=== PATIENT | male | born 1945 | race Caucasian/White ===

== ENCOUNTER 2019-09-17 10:15 | Emergency (ER) | payer MEDICARE, SELFPAY ==
--- NOTE | ~2019-09-17 | XR_ITS ---
EXAMINATION: XR chest 1V portable INDICATION: Altered mental status TECHNIQUE: Portable AP chest at 1108 hours COMPARISON: 11/28/2017 FINDINGS: There is mild atelectasis of the lung bases. No pleural effusion or pneumothorax is identif ied. The cardiomediastinal silhouette is normal. 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 IMPRESSION: 1. Mild atelectasis of the lung bases. Reviewed, dictated and finalized at location A.
--- NOTE | ~2019-09-17 | CT_ITS ---
EXAMINATION: CT brain wo con DATE: 09/17/2019 10:59 INDICATION: Altered mental status TECHNIQUE: Computed tomography (CT) of the head was performed without intravenous contrast. Sagittal and coronal reconstructions were performed. The mA was adjusted according to patient size. Iterative reconstruction technique was employed. The dose-length product was 605.33 mGy-cm. COMPARISON: head CT dated 11/28/2017 FINDINGS: No acute intracranial hemorrhage, acute infarction or abnormal extra axial fluid collection. There is mild scattered white matter hypoattenuation consistent with chronic small vessel ischemic disease. S ymmetric prominence of the sulci consistent with mild age-appropriate diffuse cerebral volume loss. V entricles are normal and symmetric. No mass/mass effect. The orbits, paranasal sinuses and mastoid ai r cells are normal. IMPRESSION: 1. No acute intracranial process. 2. Age-related changes including mild diffuse volume loss and mild scattered white matter hypoattenua tion consistent with chronic small vessel ischemic disease. Reviewed, dictated and finalized at location A. IMPRESSION: 1. No acute intracranial process. 2. Age-related changes including mild diffuse volume loss and mild scattered wh ite matter hypoattenuation consistent with chronic small vessel ischemic diseas e.
--- NOTE | 2019-09-17 10:32 | ECG_ITS ---
Measurements Intervals [place] Rate: 62 P: 19 IN: 190 QRS: 54 QRSD: 109 T: 25 QT: 416 QTc: 424 Interpretive Statements SINUS RHYTHM BASELINE WANDER- V3 NORMAL ECG Electronically Signed On 09-17-2019 11:25:30 CDT by Sonny Palacio D.O.
[2019-09-17 10:50] VITALS: BP 134/76; PULSE 62; RESP 17; TEMP 36.8; O2SAT 96
[2019-09-17 11:23] LABS: Basophils Absolute Auto 0.02 K/mm3 (0.00-0.10); Basophils Percent Auto 0.3 % (0.0-1.0); Eosinophils Absolute Auto 0.04 K/mm3 (0.02-0.50); Eosinophils Percent Auto 0.6 % (1.0-6.0); Hematocrit 41.4 % (37.0-46.0); Hemoglobin 14.3 g/dL (12.4-15.3); Immature Granulocyte Absolute 0.02 K/mm3 (0.00-0.00); Immature Granulocyte Percent A 0.3 % (0.0-0.0); Lymphocytes Absolute Auto 0.94 K/mm3 (1.10-4.50); Lymphocytes Percent Auto 13.6 % (18.0-42.0); Mean Corpuscular HGB Conc 34.5 g/dL (32.0-36.0); Mean Corpuscular Hemoglobin 31.8 pg (27.0-31.0); Mean Platelet Volume 9.8 fl (8.7-11.0); Monocytes Absolute Auto 0.61 K/mm3 (0.10-0.90); Monocytes Percent Auto 8.8 % (2.0-11.0); Neutrophils Absolute Auto 5.3 K/mm3 (1.7-7.2); Neutrophils Percent Auto 76.4 % (50.0-70.0); Platelet Count Result 159 K/mm3 (150-420); White Blood Count 6.9 K/mm3 (4.8-10.8)
[2019-09-17 11:36] LABS: Add Urine Microscopic? YES; Appearance Urine Clear (Clear); Bilirubin Urine Negative (Negative); Blood Urine Negative (Negative); Color Urine Yellow (Yellow); Glucose Urine UA Negative (Negative); Ketones Urine Trace (Negative); Leukocyte Esterase Ur Negative LEU/UL (Negative); Nitrate Urine Negative (Negative); Protein Urine Negative (Negative); Specific Grav Ur 1.025 (1.010-1.020); pH Urine 6.5 (5.0-8.0)
[2019-09-17 11:44] LABS: Bacteria Urine 2+ /hpf; Mucus Urine Few /lpf; RBC Urine 0-2 /hpf (0-2); Squamous Epithelial Cell Urine Few /hpf (Few); WBC Urine 0-3 /hpf (0-3)
[2019-09-17 11:44] LABS: Lactic Acid Reflex 1.5 mmol/L (0.4-2.0)
[2019-09-17 11:57] LABS: Alanine Aminotransferase 9 U/L (16-63); Albumin Level 3.9 g/dL (3.4-5.0); Alkaline Phosphatase 93 U/L (46-116); Aspartate Amino Transferase 23 U/L (15-37); Bilirubin,Total 1.5 mg/dL (0.00-1.00); Blood Urea Nitrogen 26 mg/dL (7-18); Calcium 8.5 mg/dL (8.5-10.1); Carbon Dioxide 32 mmol/L (21-32); Chloride 103 mmol/L (98-108); Creatine Kinase 219 U/L (39-308); Estimated Glomerular Filt Rate > 60; Glucose 94 mg/dL (70-99); Osmolality Calculated 296 mOsm/kg (285-295); Sodium 141 mmol/L (136-145); Thyroid Stimulating Hormone 1.88 uIU/mL (0.36-3.74); Total Protein 7.4 g/dL (6.4-8.2)
[2019-09-17 11:58] LABS: Acetaminophen 0 ug/mL (10-30); Ethanol < 3 mg/dL (0-6); Salicylate < 0.3 mg/dL (2.8-20.0); Troponin I < 0.02 ng/mL (0.00-0.056)
[2019-09-17 12:03] VITALS: BP 167/94; PULSE 62; O2SAT 96
--- NOTE | 2019-09-17 12:04 | ED.WEAKNESS ---
HPI - Weakness General Chief complaint: Weakness Stated complaint: altered mental status Source: patient and family Mode of arrival: wheelchair Limitations: no limitations History of Present Illness HPI Narrative: This is a 73-year-old male that presents with altered mental status with increased weakness and lower extremity weakness with some numerous falls, the patient denies any nausea vomiting, no chest pain no abdominal pain no shortness of breath no diarrhea constipation. The patient's called her primary care physician and told them about his frequent falls and increased weakness and advised to present to the emergency department for further evaluation. The patient has a history of Parkinson's disease, depression is being seen by a neurologist and the falls correspond with the starting of Seroquel approximately 4 months ago. Complaint: generalized weakness Onset (ago): month(s) Duration: constant Location: generalized Migration: none Severity: moderate Relieving factors: none Exacerbating factors: none Context: new medication Associated symptoms: denies other symptoms Related Data Home Medications Medication Instructions Recorded Confirmed carbidopa 25 mg-levodopa 100 mg 1 tablet PO TID 06/17/19 09/17/19 tablet carbidopa ER 50 mg-levodopa 200 mg 1 tablet PO .Bedtime tablet 06/17/19 09/17/19 tablet,extended release cholecalciferol (vitamin D3) 25 1,000 unit PO DAILY 06/17/19 09/17/19 mcg (1,000 unit) tablet melatonin 5 mg capsule 5 mg PO .Bedtime PRN cap 06/17/19 09/17/19 quetiapine 25 mg tablet 50 mg PO DAILY tablet 06/17/19 09/17/19 sertraline 50 mg tablet 50 mg PO DAILY 06/17/19 09/17/19 Allergies Allergy/AdvReac Type Severity Reaction Status Date / Time No Known Allergies Allergy Verified 06/17/19 14:15 Review of Systems Review of Systems: All systems reviewed & are unremarkable except as noted in HPI and below PMFSH Past Medical History Medical History Depression Insomnia Parkinsons disease Dx'd 2010 Surgical History Surgical History No history of previous surgery Social History Social History Smoking status: Never smoker Additional living arrangements comments: . 3 Children. Additional occupation/education comments: [employer] Gender identity (if verbalized by the patient): Male Exam Const: General: no acute distress and alert Orientation/consciousness: confusion Limitations: altered mental status HENMT: Head: normal to inspection Eyes: Conjunctivae: conjunctivae normal Pupils: Equal, round and reactive pupils present Neck: Neck: normal visual inspection and no lymphadenopathy Chest: Chest palpation & inspection: normal inspection of the chest and abnormal inspection of the chest Resp: Effort & Inspection: normal respiratory effort Cardio: Rate: regular rate Rhythm: regular rhythm GI: GI Palp: Yes Soft to palpation : Testes: Testes normal Back/Spine/Pelvis: Back: no CVA tenderness Skin: General skin exam: normal color Rashes: no rashes Extrem: General: normal to inspection Course Vital Signs Vital signs: Vital Signs Temperature 36.8 C 09/17/19 10:50 Pulse Rate 62 09/17/19 10:50 Respiratory Rate 17 09/17/19 10:50 Blood Pressure 134/76 09/17/19 10:50 Pulse Oximetry 96 09/17/19 10:50 Temperature 36.8 C 09/17/19 10:50 Pulse Rate 62 09/17/19 12:03 Respiratory Rate 17 09/17/19 10:50 Blood Pressure 167/94 H 09/17/19 12:03 Pulse Oximetry 96 09/17/19 12:03 MDM - Weakness Lab Data Result diagrams: 09/17/19 11:18 09/17/19 11:18 Labs: Lab Results 09/17/19 09/17/19 09/17/19 Range/Units 11:18 11:18 11:18 WBC 6.9 (4.8-10.8) K/mm3 RBC 4.50 L (4.70-6.10) M/mm3 Hgb 14.3 (12.4-15.3)
--- NOTE | 2019-09-17 12:05 | PC.NURSE ---
ERP SPOKE WITH PATIENT AND ABOUT ADMISSION FOR THERAPY. PATIENT DECLINES, STATES THEY CAN DO ALL THERAPY OUTPATIENT THROUGH THEIR OWN PHYSICIAN. PLAN IS TO DISCHARGE AND FOLLOW UP WITH PMD.
[2019-09-17 12:24] VITALS: RESP 15
== END 2019-09-17 12:25 | disposition home or self-care (01) ==
PROVIDERS: Emergency Provider Emergency Medicine; PCP Family Medicine
DX: G20 Parkinson's disease (principal); R53.1 Weakness; W19.XXXA Unspecified fall, initial encounter; Z79.899 Other long term (current) drug therapy
CPT/HCPCS: 36415; 70450; 71045; 80053; 80307; 81001; 82550; 83605; 84443; 84484; 85025; 87040; 93005; 99283; 99284

== ENCOUNTER 2019-10-02 10:04 | Outpatient (RCR) | payer MEDICARE, SELFPAY ==
--- NOTE | 2019-10-02 13:24 | PTOPEVAL ---
Thank you for referring Toney Rock to [facility]. Please review, sign, date and return this plan of care SACHIN. I agree with and certify that the following plan of care is medically necessary. Referring Physician Date Admitting Provider: Attending Provider: Ranjan Alfonso MD Referring Provider: *PT Outpatient Evaluation Start: 10/02/19 10:17 Freq: Status: Active Protocol: Document 10/02/19 10:18 [facility] (Rec: 10/02/19 11:15 [facility] [id number]) Therapy Assessment Status Assessment Status Assessment Status Evaluation Outpatient Past Medical History Past Medical History Source of Past Medical History Patient,Family/Significant Other Neurological History Hx Parkinson's Disease Yes Psychosocial History Hx Depression Yes Evaluation Information Problem Diagnosis unsteady gait, parkinsons Subjective Information patient is reporting history Query Text:As Reported By Patient/ with and through his . Family they report patient has been diagnosed with parkinsons since 2010. they report in the last 2-3 weeks, patient has been falling more frequently. patients report he has been weak in the knees nad unable to stand without help for a few days. he reports he has been having an increased hard time going to sleep. they report he has been taking carbidopa/levodopa 3x daily and an extended release dose at night. he does not have a brain stimulator. Prior Level of Function Comments Additional Prior Level of Function patient has been diagnosed Comments with parkinsons since 2010. he reports prior to his recent increased bouts of falls in the past few weeks to a month, patient was falling about 1x per month. he reports he has fallen most recently in the last few days. Pain Assessment Timing of Pain Assessment Timing of Pain Assessment Assessment Self Report Self Report Pain Level 0 Pain Score Pain Score 0: Self Report Upper Extremity Range of Motion General Upper Extremity Range of Motion Gross Upper Extremity Range of Motion functional forward flexion Comments r
--- NOTE | 2019-11-04 15:36 | PTOPEVAL ---
Thank you for referring Toney Rock to [facility]. Please review, sign, date and return this plan of care SACHIN. I agree with and certify that the following plan of care is medically necessary. Referring Physician Date Admitting Provider: Attending Provider: Ranjan Alfonso MD Referring Provider: *PT Outpatient Evaluation Start: 10/02/19 10:17 Freq: Status: Active Protocol: Document 10/28/19 09:00 [facility] (Rec: 11/04/19 15:35 [facility] [email or web address]) Therapy Assessment Status Assessment Status Assessment Status Re-evaluation Outpatient Past Medical History Past Medical History Source of Past Medical History Patient,Family/Significant Other Neurological History Hx Parkinson's Disease Yes Psychosocial History Hx Depression Yes Evaluation Information Problem Diagnosis parkinsons, unsteady gait Subjective Information patient and report Query Text:As Reported By Patient/ patient has fallen a few times Family since beginning therapy. however, he has not fallen in the past week. patient is using walker more at home, but still not 100% of the time. Pain Assessment Timing of Pain Assessment Timing of Pain Assessment Assessment Self Report Self Report Pain Level 0 Pain Score Pain Score 0: Self Report Lower Extremity Muscle Strength Testing General Lower Extremity Strength Gross Lower Extremity Strength 4/5 bilateral hip flexion in sitting 4-5 bilateral hip abd in sitting 5/5 bilateral knee flexion and extension 4+/5 bilateral ankle DF 4/5 bilateral ankle PF Muscle Length Testing Muscle Length Testing Left Hamstring Length 45 Query Text:(90 - 90 Position) Right Hamstring Length 45 Query Text:(90 - 90 Position) Balance Assessment Tinetti Balance Assessment Sitting Balance Steady, safe Ability to Arise Able, uses arms to help Attempts to Arise Arises on 1st attempt Immediate Standing Balance Steady with support Standing Balance Narrow stance w/o support Nudged Response Begins to fall Standing with Eyes Closed Unsteady Step Pattern Turning 360 Degrees Continuous steps Stability Turning 360 Degrees Unsteady, grabs/staggers Sitting Down Uses arms or unsteady Initiation of Gait No hesitancy Right Foot Step Length Does pass stance foot Right Foot
== END 2019-11-25 17:00 ==
LOC: CHSPT 10:04
PROVIDERS: PCP Family Medicine; Visit Provider Family Medicine
DX: G20 Parkinson's disease (principal)
CPT/HCPCS: 97110; 97112; 97116; 97162; 97530

== ENCOUNTER 2020-08-15 13:03 | Outpatient (RCR) | payer MEDICARE, SELFPAY ==
--- NOTE | 2020-08-15 14:17 | PTOPEVAL ---
Thank you for referring Toney Rock to [facility].? The patient is scheduled to be seen for therapy? ____x/week for ___ weeks. Please review, sign, date and return this plan of care SACHIN. I agree with and certify that the following plan of care is medically necessary. Referring Physician Date Admitting Provider: Attending Provider: MERY CARDOZA Referring Provider: ELIN Outpatient Evaluation Start: 08/15/20 13:06 Freq: Status: Active Protocol: Document 08/15/20 13:06 [facility] (Rec: 08/15/20 14:15 [facility] [id number]) Therapy Assessment Status Assessment Status Assessment Status Evaluation Outpatient Past Medical History Neurological History Hx Parkinson's Disease Yes Psychosocial History Hx Depression Yes Evaluation Information Problem Diagnosis unstreadiness Subjective Information Patient states he has been Query Text:As Reported By Patient/ falling frequently and the Family most recent one was this morning when he was putting his shoes on. He states that he may fall 3-4 times in a day or he may have a couple days where he doesnt fall. He states that he may be able to get off of the floor by himself, but sometimes he cannot. He states his goal is to decrease amount of falls and walk easier. 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 Hand Dominance Right Activity of Daily Living Ability Needs Some Help Indoor/Home Mobility Needs Some Help Community Mobility Needs Some Help Functional Cognition (Planning, Shopping Needs Some Help , Taking Medications) Cooking No Cleaning No Laundry No Shopping No Driving No Pain Assessment Pain Scale Pain Scale Used Numeric (1 - 10) Interventions Used Interventions Used By Clinicians Activity or ADL's,Exercise Lower Extremity Muscle Strength Testing Hip Strength Bilateral Hip Flexion Strength 3+ Fair + Hip Abduction Strength 3+ Fair + Hip Adduction Strength 3+ Fair + Knee Strength Bilateral Knee Flexion Strength 3+ Fair + Knee Extension Strength 4 Good Ankle Strength Bilateral Ankle Dorsiflexion Strength 3+ Fair + Ankle Plantarflexion Strength 4 Good Muscle Length Testing Muscle Length Testing Left Hamstring Length 35
--- NOTE | 2020-08-17 16:42 | STOPEVAL ---
SPEECH THERAPY EVALUATION Thank you for referring Toney Rock to [facility].? The patient is scheduled to be seen for therapy? 1x/week for 4 weeks. Please review, sign, date and return this plan of care SACHIN. I agree with and certify that the following plan of care is medically necessary. Referring Physician Date Admitting Provider: Attending Provider: MERY CARDOZA Referring Provider: REUBEN Outpatient Evaluation Start: 08/17/20 15:56 Freq: Status: Active Protocol: Document 08/17/20 15:57 [facility] (Rec: 08/17/20 16:42 [facility] [email or web address]) Therapy Assessment Status Assessment Status Assessment Status Evaluation Outpatient Past Medical History Past Medical History Source of Past Medical History Patient,Family/Significant Other Neurological History Hx Dementia Yes: Lewy body dementia with behavioral disturbance Hx Parkinson's Disease Yes Psychosocial History Hx Depression Yes Evaluation Information Problem Diagnosis 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 He often gets frustrated when she asks him to repeat himself multiple times. Prior Level of Function Activity Level (Last 3 Months) Activity of Daily Living Ability Dependent Home Setting Mobility Assistive Devices (Used Last 3 Walker, Rollator Months) Prior Swallow Level Prior Intake Method Oral Prior Diet Regular (Level 7 Diet) Prior Liquid Consistency Thin (Level 0 Diet) Prior Cognition/Communication Prior Communication Level Moderate Impairment,Dysarthria ,Slurred Speech Prior Cognitive Function Moderate Assistance,Demented, Memory Impaired,Orientation Impaired Prior Ability to Handle Finances Dependent Pain Assessment Timing of Pain Assessment Timing of Pain Assessment Assessment Self Report Self Report Pain Level 0 Pain Score Pain Score 0: Self Report Language Evaluation Auditory Comprehension Body Part Identification (% Accuracy (0- 80 100)) Simple Yes/No Questions (% Accuracy (0- 80 100)) Moderate Yes/No Questions (% Accuracy (0 80 -100)) Complex Yes/No Questions (% Accuracy (0- 60 100)) Auditory Comprehension One-Step 100 Directives (% Accuracy (0-100)) Auditory Comprehension of Two-Step
--- NOTE | 2020-09-14 17:08 | PCSTNOTE ---
Admitting Provider: Attending Provider: MERY CARDOZA Patient:Toney Rock Date of :1945 Patient has reached max rehab potential with ST treatment at this time and therefore will be discharged. Patient?s initial visit was on 08/17/2020 and he had a total of 4 visits. The goals have been partially met. Patient met the goal for confrontational naming along with showing improvements in max phonation and word imitation. The patient's memory impairments continue to impact the patient's ability to recall compensatory techniques to improve speech intelligibility skills. Education with the patient's and handouts were given to continue to target the patient's speech intelligibility skills. Compensatory techniques include; deep inhalation upon phonation, over articulation for improved speech, upright posture/chin up when speaking, pauses between words and stopping and attempting word again if stuck on a target word. Thank you for referring this patient to [facility]. Please review, sign, date and return this discharge summary SACHIN. I have been updated about the patient's current status and I agree with discharge from the above service at this time. Referring Physician Date
== END 2020-09-21 15:16 | disposition home or self-care (01) ==
LOC: CHSPT 13:03
DX: G20 Parkinson's disease (principal); F02.81 Dementia in other diseases classified elsewhere, unspecified severity, with behavioral disturbance; R47.1 Dysarthria and anarthria; R49.8 Other voice and resonance disorders
CPT/HCPCS: 92507; 92523; 92524; 97110; 97112; 97162; 97530

== ENCOUNTER 2020-10-26 10:32 | Outpatient (CLI) | payer MEDICARE, SELFPAY ==
[2020-10-26 10:43] LABS: Basophils Absolute Auto 0.03 K/mm3 (0.00-0.10); Basophils Percent Auto 0.4 % (0.0-1.0); Eosinophils Absolute Auto 0.12 K/mm3 (0.02-0.50); Eosinophils Percent Auto 1.5 % (1.0-6.0); Hematocrit 40.3 % (37.0-46.0); Hemoglobin 13.7 g/dL (12.4-15.3); Immature Granulocyte Absolute 0.03 K/mm3 (0.00-0.00); Immature Granulocyte Percent A 0.4 % (0.0-0.0); Lymphocytes Absolute Auto 1.51 K/mm3 (1.10-4.50); Lymphocytes Percent Auto 18.8 % (18.0-42.0); Mean Corpuscular Hemoglobin 31.5 pg (27.0-31.0); Mean Corpuscular Volume 92.6 fL (78.0-102.0); Mean Platelet Volume 9.4 fl (8.7-11.0); Monocytes Absolute Auto 0.77 K/mm3 (0.10-0.90); Monocytes Percent Auto 9.6 % (2.0-11.0); Neutrophils Absolute Auto 5.6 K/mm3 (1.7-7.2); Neutrophils Percent Auto 69.3 % (50.0-70.0); Platelet Count Result 161 K/mm3 (150-420); Red Blood Count 4.35 M/mm3 (4.70-6.10); White Blood Count 8.1 K/mm3 (4.8-10.8)
[2020-10-26 11:40] LABS: Alanine Aminotransferase 13 U/L (16-63); Albumin Level 3.8 g/dL (3.4-5.0); Alkaline Phosphatase 91 U/L (46-116); Anion Gap 6 mmol/L (8-16); Aspartate Amino Transferase 16 U/L (15-37); Bilirubin,Total 1.1 mg/dL (0.00-1.00); Blood Urea Nitrogen 20 mg/dL (7-18); Calcium 8.6 mg/dL (8.5-10.1); Carbon Dioxide 32 mmol/L (21-32); Chloride 104 mmol/L (98-108); Cholesterol 167 mg/dL (0-200); Estimated Glomerular Filt Rate > 60; Glucose 95 mg/dL (70-99); HDL Direct 59 mg/dL (40-60); LDL Cholesterol Calculated 93 mg/dL (<130); Osmolality Calculated 296 mOsm/kg (285-295); Sodium 142 mmol/L (136-145); Total Protein 6.9 g/dL (6.4-8.2); Triglycerides 75 mg/dL (0-150)
== END 2020-10-26 10:33 | disposition home or self-care (01) ==
LOC: CHSLAB 10:34
PROVIDERS: PCP Family Medicine; Visit Provider Family Medicine
DX: G20 Parkinson's disease (principal); Z13.6 Encounter for screening for cardiovascular disorders
CPT/HCPCS: 36415; 80053; 80061; 85025

== ENCOUNTER 2021-03-30 12:23 | Outpatient (CLI) | payer MEDICARE, OTHER, SELFPAY ==
[2021-03-30 12:56] LABS: Add Urine Microscopic? YES; Appearance Urine Clear (Clear); Bilirubin Urine Negative (Negative); Blood Urine Negative (Negative); Color Urine Yellow (Yellow); Glucose Urine UA Negative (Negative); Ketones Urine 1+ (Negative); Leukocyte Esterase Ur Negative LEU/UL (Negative); Nitrate Urine Negative (Negative); Protein Urine Negative (Negative); Specific Grav Ur >= 1.030 (1.010-1.020)
[2021-03-30 13:02] LABS: Bacteria Urine Trace /hpf; RBC Urine None seen /hpf (0-2); WBC Urine None seen /hpf (0-3)
== END 2021-03-30 12:24 | disposition home or self-care (01) ==
LOC: CHSLAB 12:28
PROVIDERS: PCP Family Medicine; Visit Provider Family Medicine
DX: S05.12XA Contusion of eyeball and orbital tissues, left eye, initial encounter (principal); W10.2XXA Fall (on)(from) incline, initial encounter
CPT/HCPCS: 81001

== ENCOUNTER 2021-04-24 16:19 | Outpatient (CLI) | payer MEDICARE, SELFPAY ==
--- NOTE | ~2021-04-24 | CT_ITS ---
EXAMINATION: CT brain & sinus wo con EXAM DATE: 04/24/2021 16:49 INDICATION: S05.12XA - Contusion of eyeball and orbital tissues, left... laceration to LT eye/frontal head from fall . TECHNIQUE: Spiral CT of the head obtained without contrast. Reformatted coronal, sagittal images rev iewed. Spiral CT of the sinuses was acquired in the axial plane. Coronal and sagittal reformatted im ages were also reviewed. The dose-length product (DLP) for this examination was 756.67 mGy-cm. The exposure was tailored according to patient size, and iterative reconstruction (ASIR) was used as antony tional dose reduction technique. Comparison is made to prior examination from 09/17/2019. FINDINGS: SINUS CT: There is more buckling than previously present of the nasal bones, could be acute on chroni c nasal bone fractures The sinuses are normally developed. The sinuses are well aerated. The osti omeatal units are patent. There is no sinus wall thickening. There is moderate rightward nasal se ptal deviation. The mastoid air cells and middle ears are well aerated. External auditory canals a re patent. Small right frontal scalp contusion, laceration. HEAD CT: There is no acute intraparenchymal hemorrhage. No evidence of intraparenchymal brain mass lesion. No evidence of acute infarction. There is mild periventricular and subcortical hypodensity, nonspecific but probably related to small vessel ischemic disease. There is mild prominence of the sulci and ventricles related to cerebral atrophy. There is no mass effect or midline shift. There i s no obstructive hydrocephalus suspected. There are no extra-axial collections. There are no calvar ial acute fractures. IMPRESSION: 1. No acute intracranial findings. 2. 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 3. Right frontal scalp contusion, laceration. Reviewed, dictated and finalized at location A. FINISHER
== END 2021-04-24 16:20 | disposition home or self-care (01) ==
LOC: CHSIMG 16:23
PROVIDERS: PCP Family Medicine; Visit Provider Nurse Practitioner Family
DX: S05.12XA Contusion of eyeball and orbital tissues, left eye, initial encounter (principal)
CPT/HCPCS: 70450; 70486

== ENCOUNTER 2021-05-01 13:00 | Outpatient (RCR) | payer MEDICARE, OTHER, SELFPAY ==
--- NOTE | 2021-05-01 14:02 | PTOPEVAL ---
Thank you for referring Toney Rock to [facility].? The patient is scheduled to be seen for therapy? __2__x/week for 10 visits. Please review, sign, date and return this plan of care SACHIN. I agree with and certify that the following plan of care is medically necessary. Referring Physician Date Admitting Provider: Attending Provider: Tg Ahuja NP Referring Provider: *PT Outpatient Evaluation Start: 05/01/21 13:15 Freq: Status: Active Protocol: Document 05/01/21 13:15 [facility] (Rec: 05/01/21 14:00 [facility] [email or web address]) Therapy Assessment Status Assessment Status Assessment Status Evaluation Outpatient Past Medical History Neurological History Hx Dementia Yes: Lewy body dementia with behavorial disturbance Hx Parkinson's Disease Yes Psychosocial History Hx Depression Yes Evaluation Information Problem Diagnosis abnormality of gait and mobility Onset 04/25/21 Subjective Information Pt. states that the pt. Query Text:As Reported By Patient/ fell 1 week ago. She recalls Family that he fell 4 weeks earlier as well. Pt. reports having used his walker, but states that the walker was not near the site that he fell. Pt. has noticed falls increase over the past couple months and states that he does go without his walker frequently. Pt. notes some memory issues and pt. has trouble with clear speech. Pt. family goal is to decrease his falls and improve strength. Pain Assessment Self Report Self Report Pain Level 0 Pain Score Pain Score 0: Self Report Lower Extremity Muscle Strength Testing General Lower Extremity Strength Gross Lower Extremity Strength -bilateral hip flexioin 4/5 -bilateral knee flexion 4/5 -bilateral knee extension 4+/5 -bilateral ankle dorsiflexion 4-/5 Upper Extremity Muscle Strength Testing General Upper Extremity Strength Gross Upper Extremity Strength Comments -bilateral shoulder flexion 4- /5 -bilateral shoulder ER 4/5 -bilateral elbow flexion 4+/5 -bilateral elbow extension 4+/
== END 2021-06-08 08:26 | disposition home or self-care (01) ==
LOC: CHSPT 13:00
PROVIDERS: PCP Nurse Practitioner Family; Visit Provider Nurse Practitioner Family
DX: R26.89 Other abnormalities of gait and mobility (principal)
CPT/HCPCS: 97110; 97112; 97161; 97530

== ENCOUNTER 2021-09-07 02:39 | Emergency (ER) | payer MEDICARE, SELFPAY ==
--- NOTE | ~2021-09-07 | CT_ITS ---
EXAMINATION: CT brain wo con INDICATION: Head injury COMPARISON: 04/24/2021 TECHNIQUE: Standard unenhanced head CT. The dose-length product (DLP) was 605.33 mGy-cm. The mA was a djusted according to patient size. Iterative reconstruction technique was employed. FINDINGS: There is no acute intraparenchymal hemorrhage. No evidence of mass lesion. No evidence of a cute infarction. There is mild periventricular and subcortical hypodensity probably related to small vessel ischemic disease. There is mild prominence of the sulci and ventricles related to cerebral atr ophy. Intracranial calcified cerebral atherosclerosis is noted. There are no extra-axial collections. There is no mass effect or midline shift. The orbits and soft tissues are unremarkable. The visualiz ed sinuses and mastoid air cells are well aerated. IMPRESSION: 1. No acute intracranial abnormality. 2. Age related findings. Reviewed, dictated and finalized at location A.
[2021-09-07 02:48] VITALS: BP 190/105; PULSE 85; RESP 18; TEMP 36.3; O2SAT 97
--- NOTE | 2021-09-07 02:56 | ED.WOUNDLAC ---
HPI - Wound/Laceration General Chief Complaint: Wound/Laceration Stated Complaint: FAll Time Seen by Provider: 09/07/21 02:41 Source: patient and RN notes reviewed Mode of arrival: ambulatory Limitations: no limitations History of Present Illness Onset (ago): hour(s) (1) Location: scalp Context: accidental Treatments prior to arrival: bandage Related Data Home Medications Medication Instructions Recorded Confirmed carbidopa 25 mg-levodopa 100 mg 1 tablet PO TID 06/17/19 09/07/21 tablet carbidopa ER 50 mg-levodopa 200 mg 1 tablet PO .Bedtime tablet 06/17/19 09/07/21 tablet,extended release cholecalciferol (vitamin D3) 25 1,000 unit PO DAILY 06/17/19 09/07/21 mcg (1,000 unit) tablet quetiapine 25 mg tablet 50 mg PO DAILY tablet 06/17/19 09/07/21 sertraline 50 mg tablet 50 mg PO DAILY 06/17/19 09/07/21 Allergies Allergy/AdvReac Type Severity Reaction Status Date / Time No Known Allergies Allergy Verified 04/24/21 15:39 Review of Systems Review of Systems: All systems reviewed & are unremarkable except as noted in HPI and below PMFSH Past Medical History Medical History Contusion of left orbital tissues Delirium due to another medical condition Depression Fall Fall (on)(from) incline, initial encounter Insomnia Laceration of head Parkinsons disease Dx'd 2010 Surgical History Surgical History No history of previous surgery Social History Social History Smoking status: Never smoker Additional living arrangements comments: . 3 Children. Additional occupation/education comments: [employer] Gender identity (if verbalized by the patient): Male Exam Const: General: no acute distress and alert Nutritional Appearance: well nourished Orientation/consciousness: patient oriented x3 Limitations: no limitations Other: 4 cm left parieto-occipital scalp HENMT: Head: normal to inspection Ears: external ears normal, TM's normal bilaterally and EAC's normal General nose exam: Normal external nose present and Normal nares present Face and sinus: sinuses nontender and sinus tenderness Mouth: Yes moist mucous membranes Eyes: Conjunctivae: conjunctivae normal Pupils: Equal, round and reactive pupils present EOM: EOMs intact bilaterally Neck: Neck: normal visual inspection and no lymphadenopathy Chest: Chest palpation & inspection: normal inspection of the chest Resp: Effort & Inspection: normal respiratory effort Auscultation: clear to auscultation bilaterally Cardio: Rate: regular rate Rhythm: regular rhythm GI: GI Palp: Yes Soft to palpation and No Tenderness to palpation present (GI) Auscultation: normal bowel sounds Rectal Exam: normal sphincter tone Back/Spine/Pelvis: Back: no CVA tenderness Skin: General skin exam: normal color Neuro: General: patient oriented x3, moves all extremities, no meningeal signs, no focal motor deficits and CN's II-XI intact bilaterally Extrem: General: normal to inspection and no pedal edema Psych: Appearance: grossly normal and well kempt Mental Status: mental status grossly normal Attitude: cooperative Thought content: Yes Normal thought content present Course Course Emergency Course: Pt was stable in the ED Reevaluation(s) Date: 09/07/21 Time: 03:17 Vital Signs Vital signs: Vital Signs Temperature 36.3 C L 09/07/21 02:48 Pulse Rate 85 09/07/21 02:48 Respiratory Rate 18 09/07/21 02:48 Blood Pressure 190/105 H 09/07/21 02:48 Pulse Oximetry 97 09/07/21 02:48 Temperature 36.3 C L 09/07/21 02:48 Pulse Rate 85 09/07/21 02:48 Respiratory Rate 18 09/07/21 02:48 Blood Pressure 190/105 H 09/07/21 02:48 Pulse Oximetry 97 09/07/21 02:48 Procedures Laceration left posterior scalp laceration 4 cm: Date: 09/07/21 Time: 0
[2021-09-07] MEDS: IBUPROFEN 400 MG TABLET 800 MG PO (03:02)
[2021-09-07] MEDS: TETANUS,DIPHTHERIA,AC PERTUSSIS ADULT 0.5 ML (ADACEL) IM (03:06)
[2021-09-07] MEDS: LIDOCAINE HCL 2% PF INJ 5 ML VIAL 3 ML INFILTRATE (03:27)
[2021-09-07 03:43] VITALS: BP 150/78; PULSE 80; RESP 18; TEMP 36.4; O2SAT 97
== END 2021-09-07 03:45 | disposition home or self-care (01) ==
PROVIDERS: Emergency Provider Emergency Medicine; PCP Family Medicine
DX: S01.01XA Laceration without foreign body of scalp, initial encounter (principal); W19.XXXA Unspecified fall, initial encounter
CPT/HCPCS: 12002; 70450; 90471; 90715; 99284; A9270

== ENCOUNTER 2021-09-30 19:42 | Observation (INO) | payer MEDICARE, SELFPAY ==
--- NOTE | ~2021-09-30 | XR_ITS ---
EXAMINATION: XR chest 1V portable Exam Date/Time: 09/30/2021 20:35 CDT CLINICAL HISTORY: pt more confused and slow to respond than normal after fall Comparison: 09/17/2019. RESULT: Lines, tubes, and devices: None. Lungs and pleura: Senescent changes.. Cardiomediastinal silhouette: Stable cardiomediastinal silhouette. Other: No acute osseous or upper abdominal finding. IMPRESSION: No acute cardiopulmonary process Reviewed, dictated and finalized at location K.
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
--- NOTE | 2021-09-30 19:57 | ECG_ITS ---
Measurements Intervals [place] Rate: 66 P: 7 ME: 188 QRS: 9 QRSD: 112 T: 47 QT: 403 QTc: 425 Interpretive Statements SINUS RHYTHM INCOMPLETE RIGHT BUNDLE BRANCH BLOCK BASELINE ARTIFACT- I, II, III, AVR, AVL, AVF, V1-V4 BORDERLINE ECG Electronically Signed On 10-01-2021 8:58:35 CDT by Sonny Palacio D.O.
[2021-09-30 20:00] VITALS: BP 176/99; PULSE 70; RESP 18; TEMP 36.6; O2SAT 99
[2021-09-30 20:25] LABS: Basophils Absolute Auto 0.01 K/mm3 (0.00-0.10); Basophils Percent Auto 0.2 % (0.0-1.0); Eosinophils Absolute Auto 0.06 K/mm3 (0.02-0.50); Eosinophils Percent Auto 1.1 % (1.0-6.0); Hematocrit 39.4 % (37.0-46.0); Hemoglobin 13.2 g/dL (12.4-15.3); Immature Granulocyte Absolute 0.02 K/mm3 (0.00-0.00); Immature Granulocyte Percent A 0.4 % (0.0-0.0); Lymphocytes Absolute Auto 0.86 K/mm3 (1.10-4.50); Lymphocytes Percent Auto 15.4 % (18.0-42.0); Mean Corpuscular HGB Conc 33.5 g/dL (32.0-36.0); Mean Corpuscular Hemoglobin 31.4 pg (27.0-31.0); Mean Corpuscular Volume 93.6 fL (78.0-102.0); Mean Platelet Volume 9.4 fl (8.7-11.0); Monocytes Absolute Auto 0.53 K/mm3 (0.10-0.90); Monocytes Percent Auto 9.5 % (2.0-11.0); Neutrophils Absolute Auto 4.1 K/mm3 (1.7-7.2); Neutrophils Percent Auto 73.4 % (50.0-70.0); Platelet Count Result 159 K/mm3 (150-420); Red Blood Count 4.21 M/mm3 (4.70-6.10); Red Cell Distribution Width 13.2 % (11.6-14.4); White Blood Count 5.6 K/mm3 (4.8-10.8)
[2021-09-30 20:35] LABS: INR 1.1; Partial Thromboplastin Time 27.9 SEC (23.90-30.70); Prothrombin Time 11.4 Seconds (9.50-12.10)
[2021-09-30 20:47] LABS: Alanine Aminotransferase 7 U/L (16-63); Albumin Level 4.1 g/dL (3.4-5.0); Alkaline Phosphatase 83 U/L (46-116); Ammonia 11 umol/L (11-32); Anion Gap 6 mmol/L (8-16); Aspartate Amino Transferase 18 U/L (15-37); Bilirubin,Total 1.4 mg/dL (0.00-1.00); Blood Urea Nitrogen 24 mg/dL (7-18); Calcium 8.9 mg/dL (8.5-10.1); Carbon Dioxide 29 mmol/L (21-32); Chloride 103 mmol/L (98-108); Creatine Kinase 244 U/L (39-308); Estimated CRCL calculation 58 ml/min; Estimated Glomerular Filt Rate > 60; Glucose 106 mg/dL (70-99); Osmolality Calculated 290 mOsm/kg (285-295); Potassium 3.5 mmol/L (3.5-5.1); Sodium 138 mmol/L (136-145); Total Protein 7.7 g/dL (6.4-8.2)
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
[2021-09-30] MEDS: SODIUM CHLORIDE 0.9% IV 1,000 ML 999 ML IV CONT (21:12)
[2021-09-30 21:29] VITALS: BP 184/99; PULSE 66; RESP 18; O2SAT 97
[2021-09-30 21:32] LABS: Appearance Urine Clear (Clear); Bilirubin Urine Negative (Negative); Color Urine Light Yellow (Yellow); Glucose Urine UA Negative (Negative); Ketones Urine Negative (Negative); Leukocyte Esterase Ur Negative (Negative); Nitrate Urine Negative (Negative); Protein Urine Negative (Negative)
[2021-09-30 21:37] LABS: Add Urine Microscopic? YES; Blood Urine Trace-lysed (Negative); RBC Urine None seen /hpf (0-2)
[2021-09-30] MEDS: ENALAPRILAT 2.5 MG/2 ML VIAL 1.25 MG IV PUSH (21:46)
[2021-09-30 22:04] VITALS: BP 154/97; PULSE 66; RESP 18; TEMP 36.6; O2SAT 98
[2021-09-30 23:15] VITALS: BP 177/94; PULSE 69; RESP 18; TEMP 36.9; O2SAT 99
--- NOTE | 2021-09-30 23:47 | ADMGEN ---
This patient, Toney Rock, was admitted to 2nd Floor Room 206-1. Patient oriented to hospital policies and general routines including ID bracelet, bed and alarms, visiting hours, pain management, procedures, bathroom and other care routines, personal items, smoking policy, room service/diet, and visiting hours. Information on how to activate the Rapid Response Team has been discussed. Patient are encouraged to report perceived risks to care and to ask questions if they do not understand what they are told or what they should do. Unable to complete admission assessment due to patient being unable to communicate due to garbled speech from Parkinson's Disease. Unknown if patient comprehends all nurses are saying. Patient reached for right shoulder when nurse asked if patient was having pain, but doesn't appear to comprehend other questions. Bed alarm on. Call light in reach.
[2021-10-01] MEDS: traMADol HCL (*CRX) 25 MG TABLET PO (00:12)
[2021-10-01] MEDS: SODIUM CHLORIDE 0.9% IV 1,000 ML 100 ML IV CONT ×2 (00:12→08:05)
[2021-10-01] MEDS: CARBIDOPA/LEVODOPA 25/100 MG CR TABLET 2 TABLET PO (00:13)
[2021-10-01] MEDS: QUEtiapine FUMARATE 25 MG TABLET 75 MG PO (00:13)
[2021-10-01 00:41] VITALS: BMI 19.3
[2021-10-01 04:47] LABS: Basophils Absolute Auto 0.02 K/mm3 (0.00-0.10); Basophils Percent Auto 0.2 % (0.0-1.0); Eosinophils Absolute Auto 0.04 K/mm3 (0.02-0.50); Eosinophils Percent Auto 0.5 % (1.0-6.0); Hematocrit 36.1 % (37.0-46.0); Hemoglobin 12.1 g/dL (12.4-15.3); Immature Granulocyte Absolute 0.03 K/mm3 (0.00-0.00); Immature Granulocyte Percent A 0.4 % (0.0-0.0); Lymphocytes Absolute Auto 1.28 K/mm3 (1.10-4.50); Lymphocytes Percent Auto 15.6 % (18.0-42.0); Mean Corpuscular HGB Conc 33.5 g/dL (32.0-36.0); Mean Corpuscular Hemoglobin 31.9 pg (27.0-31.0); Mean Corpuscular Volume 95.3 fL (78.0-102.0); Mean Platelet Volume 9.8 fl (8.7-11.0); Monocytes Absolute Auto 0.75 K/mm3 (0.10-0.90); Monocytes Percent Auto 9.1 % (2.0-11.0); Neutrophils Absolute Auto 6.1 K/mm3 (1.7-7.2); Neutrophils Percent Auto 74.2 % (50.0-70.0); Platelet Count Result 144 K/mm3 (150-420); Red Blood Count 3.79 M/mm3 (4.70-6.10); Red Cell Distribution Width 13.1 % (11.6-14.4); White Blood Count 8.2 K/mm3 (4.8-10.8)
[2021-10-01 05:00] LABS: Alanine Aminotransferase 6 U/L (16-63); Albumin Level 3.4 g/dL (3.4-5.0); Alkaline Phosphatase 71 U/L (46-116); Anion Gap 5 mmol/L (8-16); Aspartate Amino Transferase 18 U/L (15-37); Bilirubin,Total 1.6 mg/dL (0.00-1.00); Blood Urea Nitrogen 17 mg/dL (7-18); Calcium 8.1 mg/dL (8.5-10.1); Carbon Dioxide 28 mmol/L (21-32); Chloride 105 mmol/L (98-108); Estimated CRCL calculation 63 ml/min; Estimated Glomerular Filt Rate > 60; Glucose 91 mg/dL (70-99); Magnesium 2.1 mg/dL (1.8-2.4); Osmolality Calculated 287 mOsm/kg (285-295); Potassium 3.4 mmol/L (3.5-5.1); Sodium 138 mmol/L (136-145); Total Protein 6.4 g/dL (6.4-8.2)
[2021-10-01 07:42] VITALS: BP 115/58; PULSE 76; RESP 14; TEMP 37.7; O2SAT 97
[2021-10-01] MEDS: CARBIDOPA/LEVODOPA 25/100 MG TABLET 1 TABLET PO (08:05)
[2021-10-01] MEDS: SERTRALINE HCL 50 MG TABLET PO (08:45)
[2021-10-01] MEDS: PANTOPRAZOLE SODIUM IV 40 MG VIAL IV PUSH (08:45)
[2021-10-01] MEDS: ENOXAPARIN 40 MG/0.4 ML SYRINGE SUB-Q (08:46)
[2021-10-01] MEDS: hydrOXYzine HCL 25 MG TABLET PO (08:46)
[2021-10-01] MEDS: CHOLECALCIFEROL 1,000 UNITS TABLET 1000 UNITS PO (08:47)
--- NOTE | 2021-10-01 09:03 | PC.NURSE ---
Physical Therapist unable to complete PT eval today.
[2021-10-01] MEDS: CALCIUM CARBONATE (OSCAL) 500 MG TABLET PO (09:25)
[2021-10-01 09:26] VITALS: TEMP 37.7
[2021-10-01] MEDS: ACETAMINOPHEN 500 MG TABLET 1000 MG PO (09:26)
[2021-10-01] MEDS: POTASSIUM CHLORIDE 20 MEQ TABLET PO (09:26)
--- NOTE | 2021-10-01 11:47 | PC.NURSE ---
Pt discharged home to family care. Discharge instructions given to pt and Daughter. Daughter verbalized understanding of medication instructions, wound care , MD follow up and fall precautions. RN transported pt to family car via and assisted him into the car.
[2021-10-01 11:50] VITALS: TEMP 36.9
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
--- NOTE | 2021-10-05 13:04 | PC.NURSE ---
Spouse states they received and understood the discharge instructions. Spouse has no other comments.
== END 2021-10-01 11:25 | disposition home or self-care (01) ==
LOC: CHSED 21:35 → CHS2ND 21:57
PROVIDERS: Nurse Practitioner; Admitting Provider Internal Medicine; Emergency Provider Emergency Medicine; PCP Nurse Practitioner Family; Visit Provider Internal Medicine
DX: S02.2XXA Fracture of nasal bones, initial encounter for closed fracture (principal); S51.811A Laceration without foreign body of right forearm, initial encounter; S63.074A Dislocation of distal end of right ulna, initial encounter; S00.83XA Contusion of other part of head, initial encounter; S01.81XA Laceration without foreign body of other part of head, initial encounter; G20 Parkinson's disease; R26.89 Other abnormalities of gait and mobility; R29.6 Repeated falls; F32.A Depression, unspecified; F05 Delirium due to known physiological condition; V89.9XXA Person injured in unspecified vehicle accident, initial encounter
CPT/HCPCS: 36415; 70450; 70486; 71045; 72125; 73100; 80053; 81001; 82140; 82550; 83605; 83735; 84443; 84484; 85025; 85610; 85730; 87040; 93005; 96361; 96372; 96374; 96375; 99285; A9270; C9113; G0378; J1650; J7030

== ENCOUNTER 2021-10-06 15:50 | Outpatient (RCR) | payer MEDICARE, SELFPAY ==
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
== END 2021-10-31 10:10 | disposition home or self-care (01) ==
LOC: CHSPT 15:50
PROVIDERS: Visit Provider Nurse Practitioner
DX: R29.6 Repeated falls (principal)
CPT/HCPCS: 97110; 97162; 97530

== ENCOUNTER 2022-03-12 15:00 | Outpatient (RCR) | payer MEDICARE, SELFPAY ==
--- NOTE | 2022-02-07 16:00 | PTOPEVAL1 ---
Assessment and note entered by JT File, PT Evaluation Information Assessment Status Evaluation Diagnosis parkinsons disease, frequent falls Onset 01/02/22 Subjective Information mr. joyner presents to skilled PT services for evaluation and treatment of frequent falls and generalized weakness/unsteady balance from parkinsons disease. he is a poor historian as his speech is poor and difficult to understand. Reported Pain Level Pain Score 0: Self Report Assessment PT Clinical Summary mr. joyner presents to skilled PT services for balance and functional deficits incurred due to patients parkinsons disease. he also is complicated by frequent falls. he would do well to attend and participate in skilled PT to improve his objective/functional deficits and improve his balance/strength to promote decreased fall risk and increased safety at home with . Plan of Care Interventions Gait Training,Neuro Re-education,Patient/Caregiver Educati,Therapeutic Activities,Therapeutic Exercise PT Services Indicated Yes Treatment Frequency and 2x weekly for 8 visits Duration These treatments will address the objective and functional deficits as defined above. The patient will be advanced safely and appropriately in order for the patient to progress towards his/her prior level of function. Additional exercises will be introduced and as well as a comprehensive home exercise program upon discharge, if needed, ?to ensure carryover of functional gains achieved in the clinic. This treatment plan has been reviewed and agreement upon by the patient.
--- NOTE | 2022-02-13 18:13 | OTOPEVAL1 ---
Assessment and note entered by Mabel Delong OT These treatments will address the objective and functional deficits as defined above. The patient will be advanced safely and appropriately in order for the patient to progress towards his/her prior level of function. Additional exercises will be introduced and as well as a comprehensive home exercise program upon discharge, if needed, ?to ensure carryover of functional gains achieved in the clinic. This treatment plan has been reviewed and agreement upon by the patient.
--- NOTE | 2022-03-01 12:47 | STOPEVAL1 ---
Assessment and note entered by TONI Morrell Evaluation Information Assessment Status Evaluation Reported Pain Level Pain Score 0: Self Report Pain Score 0: Self Report Pain Score 0: Self Report Assessment ST Clinical Summary Patient was referred by his physician for an ST evaluation due to increased difficulties in communication. The patient's reported that it is getting more and more difficult to communicate and understand the patient's wants/needs/ideas. Through clinical testing, observation and history (Parkinson disease) the patient presents with severe cognitive-communication deficits which impact his ability to communicate. He presents with slurred speech, poor breath support impacting volume of speech and significant cognitive deficits. Speech therapy will target breath support, verbal expression and auditory comprehension skills to improve patient's ability to communicate in various environments. Recommendation for ST 1x/week for 10 sessions to target voice and cognitive-communication deficits. Plan of Care Interventions Treatment of Speech,Treatment for Cognitive F, Treatment of Voice ST Services Indicated Yes Treatment Frequency and 1x/week for 10 sessions Duration These treatments will address the objective and functional deficits as defined above. The patient will be advanced safely and appropriately in order for the patient to progress towards his/her prior level of function. Additional exercises will be introduced and as well as a comprehensive home exercise program upon discharge, if needed, ?to ensure carryover of functional gains achieved in the clinic. This treatment plan has been reviewed and agreement upon by the patient.
--- NOTE | 2022-03-13 14:25 | PTOPPROG ---
Assessment and note entered by Ashia Thompson DPT Evaluation Information Assessment Status Progress Diagnosis parkinsons disease, frequent falls Onset 01/02/22 Subjective Information Pt is a poor historian due to poor speech and difficulty with understanding. Pt does report that pt is falling less frequently at home. Plan of Care PT Services Indicated Yes These treatments will address the objective and functional deficits as defined above. The patient will be advanced safely and appropriately in order for the patient to progress towards his/her prior level of function. Additional exercises will be introduced and as well as a comprehensive home exercise program upon discharge, if needed, ?to ensure carryover of functional gains achieved in the clinic. This treatment plan has been reviewed and agreement upon by the patient.
--- NOTE | 2022-03-16 14:13 | OTOPPROG ---
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 The patient did not make progress in fine motor coordination due to continued progress toward goals and the patient's cognitive deficits affecting increased coordination at this time. The patient also demonstrates increased difficulty with bilateral coordination, buttoning/unbuttoning buttons for clothing, and UE strengthening affecting his ability to engage in tasks at home with highest level of independence. The patient continues to require skilled OT to address UE deficits and to maintain current function. The patient's cognitive deficits and ability to attend to task have affected his progress at this time and will continue to affect the patient's ability to fully perform coordination tasks, the patient does demonstrate potential for improvement at this time . Plan of Care Interventions Therapeutic Exercise,Manual Therapy,Neuro Re- education,Therapeutic Activities,Electrical Stimulation,Self-Care/Home Management,Ultrasound OT Services Indicated Yes Treatment Frequency and 2x/week for 10 visits Duration These treatments will address the objective and functional deficits as defined above. The patient will be advanced safely and appropriately in order for the patient to progress towards his/her prior level of function. Additional exercises will be introduced and as well as a comprehensive home exercise program upon discharge, if needed, ?to ensure carryover of functional gains achieved in the clinic. This treatment plan has been reviewed and agreement upon by the patient.
--- NOTE | 2022-04-05 11:54 | PCSTNOTE ---
Patient did not show up for scheduled appointment this date.
--- NOTE | 2022-04-12 14:01 | PCSTNOTE ---
Patient did not show up for scheduled appointment this date.
--- NOTE | 2022-12-04 13:58 | BUSTOPDC ---
Assessment and note entered by TONI Morrell Evaluation Information Assessment Status Discharge - Pt Not Present Reported Pain Level Pain Score 0: Self Report Assessment ST Clinical Summary Patient was referred by his physician for an ST evaluation due to increased difficulties in communication. The patient's reported that it is getting more and more difficult to communicate and understand the patient's wants/needs/ideas. Through clinicial testing, observation and history (Parkinsons disease) the patient presents with severe cognitive-communication deficits which impact his ability to communicate. He presents with slurreed speech, poor breath support impacting volume of speech and significant cognitive deficits. Patient completed a total of 4 ST treatments for cognitive-communication deficits. Patient failed to continue attending ST visits and therefore has been discharged at this time.
== END 2022-03-27 19:00 | disposition home or self-care (01) ==
LOC: CHSST 15:00
PROVIDERS: PCP Family Medicine
DX: G20 Parkinson's disease (principal); R47.89 Other speech disturbances
CPT/HCPCS: 92507; 92523; 92524; 97110; 97112; 97116; 97162; 97165; 97530

== ENCOUNTER 2022-10-01 10:44 | Outpatient (CLI) | payer MEDICARE, SELFPAY ==
--- NOTE | 2022-10-01 11:04 | ECG_ITS ---
Measurements Intervals [place] Rate: 57 P: 60 DE: 175 QRS: 55 QRSD: 101 T: 69 QT: 418 QTc: 408 Interpretive Statements SINUS BRADYCARDIA BORDERLINE ECG COMPARED TO ECG 09/30/2021 20:22:36 SINUS BRADYCARDIA NOW PRESENT Electronically Signed On 10-01-2022 12:19:50 CDT by Sonny Palacio D.O.
[2022-10-01 11:06] LABS: Hematocrit 36.1 % (37.0-46.0); Hemoglobin 11.9 g/dL (12.4-15.3); Mean Corpuscular Hemoglobin 30.9 pg (27.0-31.0); Mean Corpuscular Volume 93.8 fL (78.0-102.0); Mean Platelet Volume 9.3 fl (8.7-11.0); Platelet Count Result 139 K/mm3 (150-420); Red Blood Count 3.85 M/mm3 (4.70-6.10); Red Cell Distribution Width 13.6 % (11.6-14.4); White Blood Count 6.5 K/mm3 (4.8-10.8)
[2022-10-01 11:44] LABS: Alanine Aminotransferase 10 U/L (16-63); Albumin Level 3.6 g/dL (3.4-5.0); Alkaline Phosphatase 100 U/L (46-116); Anion Gap 7 mmol/L (8-16); Aspartate Amino Transferase 13 U/L (15-37); Bilirubin,Total 0.9 mg/dL (0.00-1.00); Blood Urea Nitrogen 33 mg/dL (7-18); Calcium 8.6 mg/dL (8.5-10.1); Carbon Dioxide 30 mmol/L (21-32); Chloride 105 mmol/L (98-108); Estimated Glomerular Filt Rate 59; Glucose 101 mg/dL (70-99); NT Pro B Type Natriuretic Pept 405 pg/mL (0-450); Osmolality Calculated 301 mOsm/kg (285-295); Sodium 142 mmol/L (136-145); Total Protein 6.8 g/dL (6.4-8.2); Troponin I 8.7 ng/L (0.00-60.4)
== END 2022-10-01 10:45 | disposition home or self-care (01) ==
LOC: CHSLAB 10:47
PROVIDERS: PCP Family Medicine; Visit Provider Family Medicine
DX: I95.9 Hypotension, unspecified (principal); R06.89 Other abnormalities of breathing
CPT/HCPCS: 36415; 80053; 83880; 84484; 85027; 93005

== ENCOUNTER 2022-10-02 15:06 | Outpatient (RCR) | payer MEDICARE, SELFPAY ==
--- NOTE | 2022-10-02 17:48 | PTOPEVAL1 ---
Assessment and note entered by Lina Casarez DPT Evaluation Information Assessment Status Evaluation Diagnosis impaired balance, falls Onset 09/07/22 Subjective Information Patient is a poor historian. Patient reports he has had recent falls and reports his ruth. He uses a rollator at all times at home and in the community. He denies pain. Reported Pain Level Pain Score 0: Self Report Assessment PT Clinical Summary Patient is a 76 year old male with Parkinson's diagnosis that has impaired gait and balance. He demonstrates impaired posture, decreased LE strength, decreased LE flexibility and impaired balance increasing his fall risk in the home and in the community. Patient require frequent cueing and directions throughout treatment. He would benefit from skilled PT to address impairments and return to PLOF. Plan of Care Interventions Gait Training,Hot Pack/Cold Pack,Manual Therapy, Neuro Re-education,Patient/Caregiver Educati, Therapeutic Activities,Therapeutic Exercise,Self- Care/Home Management PT Services Indicated Yes Treatment Frequency and 2x weekly for 12 visits Duration These treatments will address the objective and functional deficits as defined above. The patient will be advanced safely and appropriately in order for the patient to progress towards his/her prior level of function. Additional exercises will be introduced and as well as a comprehensive home exercise program upon discharge, if needed, ?to ensure carryover of functional gains achieved in the clinic. This treatment plan has been reviewed and agreement upon by the patient.
--- NOTE | 2022-11-15 13:58 | PTOPPROG ---
Assessment and note entered by JT File, PT Evaluation Information Assessment Status Progress Diagnosis impaired balance, falls Onset 09/07/22 Subjective Information patient reports he feels Alright today. he reports his neck is a little sore today. Assessment PT Clinical Summary mr. joyner presents to skilled PT for his 10th skilled therapy visit. he is roughly 15 minutes late for therapy today, and thus treatment was shortened today. he presents with poor balance and safety still noting unsafe use of his walker during transfers and ambulation. he would benefit from continued skilled PT to address his balance and safety issues, improve transfers, and improve ambulation safety. Plan of Care Interventions Gait Training,Hot Pack/Cold Pack,Manual Therapy, Neuro Re-education,Patient/Caregiver Educati, Therapeutic Activities,Therapeutic Exercise,Self- Care/Home Management PT Services Indicated Yes Treatment Frequency and continue skilled PT 2x weekly for 2 more visits Duration per initial poc These treatments will address the objective and functional deficits as defined above. The patient will be advanced safely and appropriately in order for the patient to progress towards his/her prior level of function. Additional exercises will be introduced and as well as a comprehensive home exercise program upon discharge, if needed, ?to ensure carryover of functional gains achieved in the clinic. This treatment plan has been reviewed and agreement upon by the patient.
--- NOTE | 2022-12-19 08:00 | PTOPREEVAL ---
Assessment and note entered by JT File, PT Evaluation Information Assessment Status Re-evaluation Diagnosis impaired balance, falls Onset 09/07/22 Subjective Information patient is a poor historian due to his communication difficulties. he arrives to therapy with his . he has had no recent falls. she reports he still does not use the walker all the time, and frequently will get up and walk away without it. Reported Pain Level Pain Score 0: Self Report Assessment PT Clinical Summary mr. joyner presents to skilled PT services for his 12th skilled therapy visit. he presents today with continued postural and gait deficits from his parkinsons disease. he continues to crry a high fall risk and is unsafe with the use of rollator walker independently. he has not met any goals for skilled PT. at this time, patient would best transition to a maintenance therapy program to work on maintaining balance, strength, ambulation, and safety with 1x weekly therapy visits. he will also benefit from fall prevention class attendance with his 2x weekly. Plan of Care Interventions Gait Training,Neuro Re-education,Patient/Caregiver Educati,Therapeutic Activities,Therapeutic Exercise,Self-Care/Home Management PT Services Indicated Yes Treatment Frequency and continue skilled PT with maintenance program 1x Duration weekly for 4 visits These treatments will address the objective and functional deficits as defined above. The patient will be advanced safely and appropriately in order for the patient to progress towards his/her prior level of function. Additional exercises will be introduced and as well as a comprehensive home exercise program upon discharge, if needed, ?to ensure carryover of functional gains achieved in the clinic. This treatment plan has been reviewed and agreement upon by the patient.
== END 2023-01-01 23:59 | disposition home or self-care (01) ==
LOC: CHSPT 15:06
PROVIDERS: PCP Family Medicine
DX: G20 Parkinson's disease (principal); G31.83 Neurocognitive disorder with Lewy bodies; F02.818 Dementia in other diseases classified elsewhere, unspecified severity, with other behavioral disturbance
CPT/HCPCS: 97110; 97112; 97116; 97161; 97530; 97750

== ENCOUNTER 2022-10-08 14:42 | Outpatient (CLI) | payer MEDICARE, SELFPAY ==
--- NOTE | 2022-10-08 14:49 | ECHO_ITS ---
Patient Info Name: Toney Rock Age: 76 years : 1945 Gender: Male Ht: 68 in Wt: 140 lbs BSA: 1.74 m2 HR: 61 bpm BP: 92 / 58 mmHg Heart Rhythm: Sinus Rhythm Technical Quality: Fair Exam Date: 10/08/2022 2:35 PM Exam Location: [facility] Patient Status: Outpatient Admit Date: 10/08/2022 Staff Ordering Physician: Jamaal Auguste DO Tower Control Operator: Emmanuelle Meléndez RDCS Attending Provider: Jamaal Auguste DO Referring Physician: Molina CHAPA; Exam Type: CA echo doppler color flow Study Info Indications - hypotension Complete two-dimensional, color flow and Doppler transthoracic echocardiogram is performed. Summary 1. Complete two-dimensional, color flow and Doppler transthoracic echocardiogram is performed. 2. Technically suboptimal study due to poor sonographic images. 3. Left ventricular chamber dimension is normal. 4. Left ventricular systolic function is normal, estimated at 60-65%. 5. There is mild concentric increased left ventricular wall thickness. 6. The left ventricular diastolic function is grade I diastolic dysfunction. 7. The aortic valve is not well visualized. Cannot determine number of aortic valve leaflets. 8. There is moderate aortic valve stenosis based on a peak velocity of 239 cm/s, mean gradient of 15 mmHg, and aortic valve area of 1.5 cm2. 9. There is severe aortic valve sclerosis. 10. No pulmonary hypertension, estimated pulmonary arterial systolic pressure is 24 mmHg. Left Ventricle Technically suboptimal study due to poor sonographic images. Left ventricular chamber dimension is normal. Left ventricular systolic function is normal, estimated at 60-65%. There is mild concentric increased left ventricular wall thickness. The left ventricular diastolic function is grade I diastolic dysfunction. Tissue doppler E/e' not performed. Right Ventricle Right ventricular systolic function is normal and with normal TAPSE 2.4 cm. Right ventricular chamber dimension is normal. Left Atria Left atrial chamber dimension is normal. Right Atria Right atrial chamber dimension is normal. Aortic Valve The aortic valve is not well visualized. Cannot determine number of aortic valve leaflets. There is moderate aortic valve stenosis based on a peak velocity of 239 cm/s, mean gradient of 15 mmHg, and aortic valve area of 1.5 cm2. There is severe aortic valve sclerosis. There is no aortic valve regurgitation. Pulmonic Valve There is no pulmonic regurgitation. Mitral Valve There is no mitral valve stenosis. There is no mitral valve regurgitation. Tricuspid Valve There is no tricuspid valve regurgitation. No pulmonary hypertension, estimated pulmonary arterial systolic pressure is 24 mmHg. Pericardium/Pleural There is no pericardial effusion. Inferior Vena Cava Inferior vena cava is not well visualized. Aorta The aortic root size at the sinus of Valsalva is normal. Left Ventricular Outflow Tract Name Value Normal LVOT 2D LVOT Diameter 2.1 cm LVOT Doppler LVOT Peak Velocity 93 cm/s LVOT Peak Gradient 3 mmHg LVOT Mean Gradient 2 mmHg LVOT VTI 21 cm
== END 2022-10-08 14:43 | disposition home or self-care (01) ==
LOC: CHSIMG 14:43
PROVIDERS: PCP Family Medicine; Visit Provider Family Medicine
DX: I95.9 Hypotension, unspecified (principal); I35.0 Nonrheumatic aortic (valve) stenosis
CPT/HCPCS: 93306

== ENCOUNTER 2022-10-09 15:06 | Emergency (ER) | payer MEDICARE, SELFPAY ==
[2022-10-09] VITALS (15 sets, daily range): BP systolic 84–136; BP diastolic 55–85; PULSE 51–68; RESP 10–23; TEMP 36.1; O2SAT 92–100
--- NOTE | ~2022-10-09 | XR_ITS ---
EXAMINATION: XR chest 1V portable DATE: 10/09/2022 16:37 INDICATION: Near syncope. TECHNIQUE: A single frontal view of the chest was obtained. COMPARISON: Chest single view 09/30/2021 FINDINGS: There are interstitial opacities in the lower lung zones. No pleural effusion or pneumothor ax. The heart size is normal. IMPRESSION: 1. Interstitial opacities in the lower lung zones, consistent with mild pulmonary edema versus mild a telectasis. Reviewed, dictated and finalized at location A. IMPRESSION: 1. Interstitial opacities in the lower lung zones, consistent with mild pulmona ry edema versus mild atelectasis.
--- NOTE | 2022-10-09 15:57 | ED.GENADULT ---
HPI - General Adult General Chief complaint: Unspecified Stated complaint: low bp Source: patient, family and other (Dr Auguste) Mode of arrival: wheelchair Limitations: other ( Advanced Parkinson's) History of Present Illness HPI narrative: 76-year-old white male with a history of Parkinson's syndrome, in the past several months has been having episodes where he gets weak, shortness slides down to his knees, and today pulled into the parking lot of his primary care physician's office, got out of the vehicle, got weak, kind of slid down to his knees. His assisted him back up and into Dr. Auguste's office where he was noted to have a blood pressure of 88 over 44 and sent here. He has been in the process of getting worked up for this weakness, had an echo done yesterday which reportedly showed severe aortic sclerosis and moderate aortic stenosis. his reports that his blood pressure has been low for the past several months. Midodrine is listed on his computer record today, but she thinks that may have just been ordered, she does not think it has actually been started, does not think he is actually taking it. Patient denies any recent fever, chills, sinus drainage, sore throat, coughing, chest pain, palpitations, near-syncope or syncope. Patient did report he felt lightheaded at the same time he was feeling weak today. Denies abdominal pain, nausea vomiting, diarrhea or constipation, dysuria urgency or frequency Related Data Home Medications Medication Instructions Recorded Confirmed carbidopa 25 mg-levodopa 100 mg 1 tablet PO TID 06/17/19 10/09/22 tablet carbidopa ER 50 mg-levodopa 200 mg 2 tablet PO .Bedtime 06/17/19 10/09/22 tablet,extended release cholecalciferol (vitamin D3) 25 1,000 unit PO DAILY 06/17/19 10/09/22 mcg (1,000 unit) tablet quetiapine 25 mg tablet 75 mg PO HS 06/17/19 10/09/22 sertraline 50 mg tablet 50 mg PO DAILY 06/17/19 10/09/22 vitamin E 1,000 unit tablet 1 tablet PO DAILY 09/30/21 10/09/22 Allergies Allergy/AdvReac Type Severity Reaction Status Date / Time No Known Allergies Allergy Verified 10/09/22 15:22 Review of Systems Review of Systems: All systems reviewed & are unremarkable except as noted in HPI and below PMFSH Past Medical History Medical History Contusion of left orbital tissues Cyst of Skin Depression Insomnia Parkinsons disease Dx'd 2010 Skin lesion of neck Surgical History Surgical History No history of previous surgery Family History Family History Other Family history of high cholesterol Unknown family medical history Social History Social History Smoking status: Never smoker Alcohol intake: current Alcohol use details: Seldom Substance use: never Living arrangements: with family Additional living arrangements comments: . 3 Children. 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 He is oriented to person, place, year, month Const: General: cooperative and no acute distress Nutritional Appearance: average body habitus Orientation/consciousness: patient oriented x3 Limitations: other limitations ( limited by severity of Parkinson's) HENMT: Head: normal to inspection Ears: hearing grossly normal bilaterally Face/Nose/Sinus: Normal external nose present and Normal nares present Face and sinus: normal facial exam Mouth: Yes dry mucous membranes Eyes: Ge
--- NOTE | 2022-10-09 15:59 | ECG_ITS ---
Measurements Intervals [place] Rate: 58 P: 42 NM: 185 QRS: 32 QRSD: 97 T: 4 QT: 426 QTc: 419 Interpretive Statements SINUS BRADYCARDIA BASELINE ARTIFACT- I, II, III, AVL, AVF BORDERLINE ECG COMPARED TO ECG 10/01/2022 11:12:10 NO SIGNIFICANT CHANGES Electronically Signed On 10-09-2022 18:41:51 CDT by Sonny Palacio D.O.
[2022-10-09 16:14] LABS: Basophils Absolute Auto 0.02 K/mm3 (0.00-0.10); Basophils Percent Auto 0.3 % (0.0-1.0); Eosinophils Absolute Auto 0.09 K/mm3 (0.02-0.50); Eosinophils Percent Auto 1.4 % (1.0-6.0); Hematocrit 36.7 % (37.0-46.0); Hemoglobin 12.3 g/dL (12.4-15.3); Immature Granulocyte Absolute 0.02 K/mm3 (0.00-0.00); Immature Granulocyte Percent A 0.3 % (0.0-0.0); Lymphocytes Absolute Auto 0.87 K/mm3 (1.10-4.50); Lymphocytes Percent Auto 13.3 % (18.0-42.0); Mean Corpuscular HGB Conc 33.5 g/dL (32.0-36.0); Mean Corpuscular Hemoglobin 31.1 pg (27.0-31.0); Mean Corpuscular Volume 92.9 fL (78.0-102.0); Mean Platelet Volume 9.6 fl (8.7-11.0); Monocytes Absolute Auto 0.52 K/mm3 (0.10-0.90); Neutrophils Percent Auto 76.7 % (50.0-70.0); Platelet Count Result 155 K/mm3 (150-420); Red Blood Count 3.95 M/mm3 (4.70-6.10); Red Cell Distribution Width 13.2 % (11.6-14.4); White Blood Count 6.5 K/mm3 (4.8-10.8)
[2022-10-09] MEDS: LACTATED RINGERS 1,000 ML 999 ML IV CONT (16:26)
[2022-10-09 16:30] LABS: Partial Thromboplastin Time 28.1 SEC (23.90-30.70); Prothrombin Time 11.3 Seconds (9.50-12.10)
--- NOTE | 2022-10-09 16:30 | PC.NURSE ---
PT IS EATING A SANDWICH AND DRINKING A SODA WITH AT BEDSIDE. IVF ARE INFUSING ORDERED WITHOUT DIFFICULTY. NAD NOTED. WILL CONTINUE TO MONITOR.
[2022-10-09 16:35] LABS: D Dimer 0.72 mg/L (0.19-0.50)
[2022-10-09 16:37] LABS: Albumin Level 3.5 g/dL (3.4-5.0); Alkaline Phosphatase 85 U/L (46-116); Anion Gap 4 mmol/L (8-16); Aspartate Amino Transferase 17 U/L (15-37); Bilirubin,Total 1.2 mg/dL (0.00-1.00); Blood Urea Nitrogen 23 mg/dL (7-18); Calcium 8.5 mg/dL (8.5-10.1); Carbon Dioxide 33 mmol/L (21-32); Chloride 105 mmol/L (98-108); Estimated CRCL calculation 51 ml/min; Estimated Glomerular Filt Rate > 60; Glucose 110 mg/dL (70-99); NT Pro B Type Natriuretic Pept 1007 pg/mL (0-450); Osmolality Calculated 298 mOsm/kg (285-295); Potassium 4.2 mmol/L (3.5-5.1); Sodium 142 mmol/L (136-145)
[2022-10-09 16:39] LABS: Troponin I 11.2 ng/L (0.00-60.4)
[2022-10-09 16:50] LABS: Alanine Aminotransferase 9 U/L (16-63)
== END 2022-10-09 17:35 | disposition home or self-care (01) ==
PROVIDERS: Emergency Provider Emergency Medicine; PCP Family Medicine
DX: I95.89 Other hypotension (principal); G20 Parkinson's disease; I35.0 Nonrheumatic aortic (valve) stenosis; E86.0 Dehydration; F45.8 Other somatoform disorders; Z91.81 History of falling; Z79.899 Other long term (current) drug therapy
CPT/HCPCS: 36415; 71045; 80053; 83880; 84484; 85025; 85380; 85610; 85730; 93005; 96360; 99284; J7120

== ENCOUNTER 2023-06-14 14:49 | Emergency (ER) | payer MEDICARE, SELFPAY ==
[2023-06-14] VITALS (37 sets, daily range): BP systolic 105–188; BP diastolic 67–107; PULSE 59–65; RESP 16–20; TEMP 37; O2SAT 62–100
--- NOTE | ~2023-06-14 | XR_ITS ---
XR chest 1V portable DATE: 06/14/2023 15:27 INDICATION: Multiple falls. Confusion. History of Parkinson's disease. TECHNIQUE: Portable AP chest COMPARISON: 10/09/2022 portable AP chest FINDINGS: This is a limited rotated single portable view of the chest. Heart size is not optimally evaluated on AP projection because of magnification. Mild aortic arch elder cification is suggested. No hilar or mediastinal enlargement. No pulmonary infiltrate or consolidation, pleural effusion or pulmonary vascular congestion or pneumo thorax is detected. Old healed left and at least sixth and seventh rib fracture deformities. There is dextroscoliosis and degenerative spurring of the thoracic and lumbar spine. IMPRESSION: Limited rotated lateral single view; no active cardiopulmonary disease is evident Reviewed, dictated and finalized at location B. ER CREW WORKER IMPRESSION: Limited rotated lateral single view; no active cardiopulmonary dise ase is evident
--- NOTE | ~2023-06-14 | CT_ITS ---
EXAMINATION: CT brain wo con DATE: 06/14/2023 15:26 INDICATION: Multiple falls. Confusion. Weight loss. TECHNIQUE: Computed tomography (CT) of the head was performed without intravenous contrast. The mA wa s adjusted according to patient size. Iterative reconstruction technique was employed. Exam dose: 68 1.00 mGy-cm total exam DLP. COMPARISON: 09/30/2021 CT brain FINDINGS: Bilateral vertebral artery and carotid siphon and supraclinoid internal carotid artery calc ifications. Moderate cerebral and cerebellar volume loss. No intracranial mass lesion or hemorrhage or cerebrovascular accident is detected. No midline shift o r mass effect. No subdural or epidural hematoma. No skull fracture or bone destruction. The paranasal sinuses and mastoid air cells are well-developed and aerated. IMPRESSION: No skull fracture or acute intracranial finding Reviewed, dictated and finalized at Location A. Reviewed, dictated and finalized at location B. RACT DESIGN AGENT
--- NOTE | ~2023-06-14 | CT_ITS ---
EXAMINATION: CT cervical spine wo con DATE: 06/14/2023 15:26 INDICATION: Multiple falls with confusion and increased weakness TECHNIQUE: Computed tomography (CT) of the cervical spine was performed without intravenous contrast. Automated exposure control and iterative reconstruction technique were employed. The dose-length pro duct was 179.72 mGy-cm. COMPARISON: None FINDINGS: Alignment is normal. Vertebral body heights are normal. No fracture. 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 Moderate disc height loss with moderate to severe bilateral uncovertebral ost eoarthritis at C5-C6 and C6-C7. Mild disc height loss at C7-T1. And multilevel mild central canal shai nosis resulting from small posterior disc osteophyte complexes at C5-C6 and C6-C7 related to mild dis c bulges at C2-C3 through C4-C5. There is mild to moderate multilevel cervical facet osteoarthritis m ost prominent at the right side of the upper cervical spine and on the left at C7-T1. This along with the uncovertebral osteoarthritis contributes to bilateral multilevel mild neural foraminal stenosis. Cervical soft tissues are unremarkable. Visualized upper lungs are clear. IMPRESSION: 1. Moderate cervical spondylosis. No acute osseous abnormality. Reviewed, dictated and finalized at location A. IAL DEPUTY SHERIFF
--- NOTE | 2023-06-14 14:54 | ECG_ITS ---
Measurements Intervals [place] Rate: 61 P: 87 VT: 195 QRS: 65 QRSD: 104 T: 34 QT: 440 QTc: 444 Interpretive Statements SINUS RHYTHM ATRIAL PREMATURE COMPLEX EARLY PRECORDIAL R/S TRANSITION VOLTAGE CRITERIA FOR LVH BASELINE ARTIFACT- I, II, III, AVR, AVL, AVF, V1-V6 BORDERLINE ECG COMPARED TO ECG 10/09/2022 16:14:42 SINUS RHYTHM NOW PRESENT LEFT VENTRICULAR HYPERTROPHY NOW PRESENT Electronically Signed On 06-14-2023 16:44:11 TEAM PRIMARY CARE PHYSICIAN by Sonny Palacio D.O.
--- NOTE | 2023-06-14 15:23 | ED.WEAKNESS ---
HPI - Weakness General Chief complaint: Weakness Stated complaint: ? Time Seen by Provider: 06/14/23 14:53 Source: family Mode of arrival: ambulatory Limitations: physical limitation and clinical condition History of Present Illness HPI Narrative: Patient is 77 years old white male with history of parkinsonism came from home with family because of progressive movement disorders, not moving like a showed over the last few months. Last time was seen by his neurologist over 1 year ago. is telling me that patient have history of multiple falls. Also his speech is not clear for years cannot understand him. history of hypotension and parkinsonism Related Data Home Medications Medication Instructions Recorded Confirmed carbidopa 25 mg-levodopa 100 mg 1 tablet PO TID 06/17/19 10/17/22 tablet carbidopa ER 50 mg-levodopa 200 mg 2 tablet PO .Bedtime 06/17/19 10/17/22 tablet,extended release cholecalciferol (vitamin D3) 25 1,000 unit PO DAILY 06/17/19 10/17/22 mcg (1,000 unit) tablet quetiapine 25 mg tablet 75 mg PO HS 06/17/19 10/17/22 sertraline 50 mg tablet 50 mg PO DAILY 06/17/19 10/17/22 vitamin E 1,000 unit tablet 1 tablet PO DAILY 09/30/21 10/17/22 Allergies Allergy/AdvReac Type Severity Reaction Status Date / Time No Known Allergies Allergy Verified 12/26/22 08:17 Review of Systems Review of Systems: ROS unobtainable: Yes unobtainable due to medical condition PMFSH Past Medical History Medical History Contusion of left orbital tissues Cyst of Skin Depression Insomnia Parkinsons disease Dx'd 2010 Skin lesion of neck Surgical History Surgical History No history of previous surgery Family History Family History Other Family history of high cholesterol Unknown family medical history Social History Social History Smoking status: Never smoker Alcohol intake: current Alcohol use details: Seldom Substance use: never Living arrangements: with family Additional living arrangements comments: . 3 Children. 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 Musculoskeletal: slight limited movement of the upper and lower extremities Neurologic: Alert . Following verbal commands, unclear voice Course Consultations Consultation #1: DR BARRETT DO NOT REMOVE THE BUSTAMANTE CATHETER, DID NOT IRRIGATE ANYMORE, SEEN PATIENT UNDERSTAND HOSPITAL Date: 06/14/23 Time: 18:43 Consultation #2: DR IZAGUIRRE Date: 06/14/23 Time: 20:00 Vital Signs Vital signs: Vital Signs Temperature 37.0 C 06/14/23 14:49 Pulse Rate 62 06/14/23 14:49 Respiratory Rate 06/14/23 14:49 Blood Pressure 155/97 H 06/14/23 14:49 Pulse Oximetry 97 06/14/23 14:49 Oxygen Delivery Room Air 06/14/23 14:49 Temperature 37.0 C 06/14/23 14:49 Pulse Rate 61 06/14/23 17:32 Respiratory Rate 06/14/23 17:32 Blood Pressure 143/8
[2023-06-14 15:35] LABS: Basophils Absolute Auto 0.02 K/mm3 (0.00-0.10); Basophils Percent Auto 0.3 % (0.0-1.0); Eosinophils Absolute Auto 0.02 K/mm3 (0.02-0.50); Eosinophils Percent Auto 0.3 % (1.0-6.0); Hemoglobin 11.6 g/dL (12.4-15.3); Immature Granulocyte Absolute 0.02 K/mm3 (0.00-0.00); Immature Granulocyte Percent A 0.3 % (0.0-0.0); Lymphocytes Absolute Auto 0.79 K/mm3 (1.10-4.50); Lymphocytes Percent Auto 10.8 % (18.0-42.0); Mean Corpuscular HGB Conc 34.1 g/dL (32.0-36.0); Mean Corpuscular Hemoglobin 30.1 pg (27.0-31.0); Mean Corpuscular Volume 88.1 fL (78.0-102.0); Mean Platelet Volume 9.1 fl (8.7-11.0); Monocytes Absolute Auto 0.59 K/mm3 (0.10-0.90); Monocytes Percent Auto 8.1 % (2.0-11.0); Neutrophils Absolute Auto 5.9 K/mm3 (1.7-7.2); Neutrophils Percent Auto 80.2 % (50.0-70.0); Platelet Count Result 182 K/mm3 (150-420); Red Blood Count 3.86 M/mm3 (4.70-6.10); Red Cell Distribution Width 13.2 % (11.6-14.4); White Blood Count 7.3 K/mm3 (4.8-10.8)
[2023-06-14 15:50] LABS: INR 1.1; Partial Thromboplastin Time 30.5 SEC (23.90-30.70); Prothrombin Time 11.9 Seconds (9.50-12.10)
[2023-06-14 15:52] LABS: Alanine Aminotransferase 10 U/L (16-63); Albumin Level 3.5 g/dL (3.4-5.0); Alkaline Phosphatase 93 U/L (46-116); Anion Gap 8 mmol/L (8-16); Aspartate Amino Transferase 28 U/L (15-37); Bilirubin,Total 1.4 mg/dL (0.00-1.00); Blood Urea Nitrogen 24 mg/dL (7-18); Calcium 8.5 mg/dL (8.5-10.1); Carbon Dioxide 28 mmol/L (21-32); Chloride 100 mmol/L (98-108); Estimated CRCL calculation 42 ml/min; Estimated Glomerular Filt Rate > 60; Glucose 108 mg/dL (70-99); Osmolality Calculated 287 mOsm/kg (285-295); Potassium 3.7 mmol/L (3.5-5.1); Sodium 136 mmol/L (136-145); Total Protein 6.9 g/dL (6.4-8.2)
[2023-06-14] MEDS: SODIUM CHLORIDE 0.9% IV 1,000 ML 999 ML IV CONT ×2 (16:25→20:32)
--- NOTE | 2023-06-14 18:29 | PC.NURSE ---
1730 irrigate with 650 ml normal saline with 50ml return, bright red blood in tubing. 1800 pt up to commode with no stool. no urine in tubing . bladder scanner states 115ml. facial grimacing with irrigation
--- NOTE | 2023-06-14 19:06 | PC.NURSE ---
report to pat grider. no questions
[2023-06-14] MEDS: MIDODRINE HCL 2.5 MG TABLET 10 MG PO (21:30)
[2023-06-14] MEDS: SODIUM CHLORIDE 0.9% IV 1,000 ML 150 ML IV CONT (23:30)
== END 2023-06-14 23:45 | disposition short-term general hospital (02) ==
PROVIDERS: Emergency Provider Emergency Medicine; PCP Family Medicine
DX: R53.1 Weakness (principal); R31.9 Hematuria, unspecified; N36.5 Urethral false passage; G25.9 Extrapyramidal and movement disorder, unspecified; G20.A1 Parkinson's disease without dyskinesia, without mention of fluctuations
CPT/HCPCS: 36415; 70450; 71045; 72125; 80053; 85025; 85610; 85730; 93005; 96360; 99285; A9270; J7030

== ENCOUNTER 2023-06-15 00:23 | Observation (INO) | payer MEDICARE, SELFPAY ==
--- NOTE | 2023-06-15 00:25 | ADMGEN ---
This patient, Toney Rock, was admitted to 2 Medical Room 244-. Patient/family oriented to hospital policies and general routines including ID bracelet, bed and alarms, visiting hours, pain management, procedures, bathroom and other care routines, personal items, smoking policy, room service/diet, and visiting hours. Information on how to activate the Rapid Response Team has been discussed. Patient/Family are encouraged to report perceived risks to care and to ask questions if they do not understand what they are told or what they should do.
[2023-06-15 01:06] VITALS: BMI 39.2
[2023-06-15 01:07] VITALS: BP 172/89; PULSE 80; RESP 18; TEMP 36.4; O2SAT 96
[2023-06-15] MEDS: SODIUM CHLORIDE 0.9% IV 1,000 ML 100 ML IV CONT ×3 (01:11→20:12)
--- NOTE | 2023-06-15 01:57 | WPDURCON ---
Assessment and Plan Assessment and plan (1) Parkinsons disease: Code(s): G20 - Parkinson's disease Status: Chronic (2) Urinary incontinence: Code(s): R32 - Unspecified urinary incontinence Status: Inactive (3) Hematuria: Code(s): R31.9 - Hematuria, unspecified Status: Acute Assessment and Plan: I changed catheter at bedside ot 18 italian coude. Irrigated and small clots. Cleared Rec leave [place] 3-4 days. Irrigate if needed. Clot evac only if needed Urology Consult Note HPI Date Seen: 06/15/23 Requesting Physician: Mey Mazariegos DO Primary Care Provider: Jamaal Auguste DO Consult Narrative Narrative: Toney Rock is a 77 year old male with advanced Parkinson's. [place] and straight cath at [place], worried malplaced medina. No urine output. No history but has incontinence with diapers at baseline Review of Systems Review of Systems: minimal functioning, history per PMFSH Past Medical History Medical History Contusion of left orbital tissues Cyst of Skin Depression Insomnia Parkinsons disease Dx'd 2011 Skin lesion of neck Surgical History Surgical History No history of previous surgery Family History Family History Mother Hypertension Grandparent No problems noted. Other Parkinson disease Other Unknown family medical history Social History Social History Smoking status: Never smoker Alcohol intake: never Alcohol use details: Seldom Substance use: never Substance use type: does not use Do You Feel Safe in your Home?: Yes Lack of Transportation: No Lack of Food: Never True Current Housing: I Have Housing Concerned About Future Housing: No Difficulty Paying Gas/Electric Bills: No Difficulty Paying for Meds: No Currently Unemployed: No Education: Trade/Vocational Certificate Difficulty w/ Childcare or Family Care: No Living arrangements: with family Additional living arrangements comments: . 3 Children. 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 Gender identity (if verbalized by the patient): Male Spiritual care concerns: No Meds Home Medications and Allergies Home Medications Medication Instructions Recorded Confirmed Type carbidopa 25 mg-levodopa 100 mg 4 tablet PO TID 06/17/19 06/15/23 History tablet carbidopa ER 50 mg-levodopa 200 mg 2 tablet PO .Bedtime 06/17/19 06/15/23 History tablet,extended release cholecalciferol (vitamin D3) 25 1,000 unit PO DAILY 06/17/19 06/15/23 History mcg (1,000 unit) tablet quetiapine 25 mg tablet 75 mg PO HS 06/17/19 06/15/23 History sertraline 50 mg tablet 50 mg PO DAILY 06/17/19 06/15/23 History vitamin E 1,000 unit tablet 1 tablet PO DAILY 09/30/21 06/15/23 History midodrine 10 mg tablet 10 mg PO TID #90 tabs 12/20/22 06/15/23 Rx Allergies Allergy/AdvReac Type Severity Reaction Status Date / Time No Known Allergies Allergy Verified 12/26/22 08:17 Vital Signs Vital Signs - 24 hr 06/15/23 00:31 06/15/23 01:07 Temperature 36.4 C L Pulse Rate 80 Respiratory Rate 18 Blood Pressure 172/89 H Pulse Oximetry 96 Oxygen Delivery Room Air Exam Narrative: non verbal Const: General: uncomfortable; No acute distress Eyes: General: appearance normal, both eyes and all related structures GI: GI Palp: Yes abdominal tenderness (over bladder) and No Rebound tenderness present Urinary Catheter: Urinary Catheter: other (blood, no urine)
[2023-06-15 04:00] VITALS: BP 166/94; PULSE 72; RESP 18; TEMP 37.2; O2SAT 100
--- NOTE | 2023-06-15 08:18 | PM.IMHP ---
H&P: HPI History of Present Illness Date/Time: 06/15/23 08:18 Chief Complaint: Hematuria Narrative: History was obtained from chart review as patient was unable to Saturday history and neither son nor spouse answered to attempts to contact both. This gentleman was a direct transfer from [facility] to Urology and hospitalist service. He was seen in the emergency department there for hematuria. He had a Trujillo catheter placed. Trujillo catheter was not draining and attempted irrigation were unsuccessful. He was transferred to [facility] where a coude catheter was successfully placed irrigated and small clots were obtained. Since placement of a coude catheter and administration of IV saline at 100 mL/hr overnight his urine has cleared. He resides at home with his and son. He does not have a chronic Trujillo catheter. He is chronically incontinent of urine and wears diapers at home. He has a history of advanced Parkinson's disease and garbled speech. He has orthostatic hypotension for which she takes might adrenal at home. His had multiple falls in the recent past related to his orthostatic hypotension and disorder gait. Review of Systems Review of Systems: ROS unobtainable: Yes unobtainable due to medical condition PMFSH Past Medical History Medical History Contusion of left orbital tissues Cyst of Skin Depression Insomnia Parkinsons disease Dx'd 2010 Skin lesion of neck Surgical History Surgical History No history of previous surgery Family History Family History Mother Hypertension Other Parkinson disease Social History Social History Smoking status: Never smoker Alcohol intake: never Alcohol use details: Seldom Substance use: never Substance use type: does not use Do You Feel Safe in your Home?: Yes Lack of Transportation: No Lack of Food: Never True Current Housing: I Have Housing Concerned About Future Housing: No Difficulty Paying Gas/Electric Bills: No Difficulty Paying for Meds: No Currently Unemployed: No Education: Trade/Vocational Certificate Difficulty w/ Childcare or Family Care: No Living arrangements: with family Additional living arrangements comments: . 3 Children. 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 Gender identity (if verbalized by the patient): Male Spiritual care concerns: No Meds Home Medications and Allergies Home Medications Medication Instructions Recorded Confirmed Type carbidopa 25 mg-levodopa 100 mg 4 tablet PO TID 06/17/19 06/15/23 History tablet carbidopa ER 50 mg-levodopa 200 mg 2 tablet PO .Bedtime 06/17/19 06/15/23 History tablet,extended release cholecalciferol (vitamin D3) 25 1,000 unit PO DAILY 06/17/19 06/15/23 History mcg (1,000 unit) tablet quetiapine 25 mg tablet 75 mg PO HS 06/17/19 06/15/23 History sertraline 50 mg tablet 50 mg PO DAILY 06/17/19 06/15/23 History vitamin E 1,000 unit tablet 1 tablet PO DAILY 09/30/21 06/15/23 History midodrine 10 mg tablet 10 mg PO TID #90 tabs 12/20/22 06/15/23 Rx Allergies Allergy/AdvReac Type Severity Reaction Status Date / Time No Known Allergies Allergy Verified 12/26/22 08:17 Vital Signs Vital Signs - 24 hr 06/15/23 00:31 06/15/23 01:07 06/15/23 04:00 Temperature 97.5 F L 98.9 F Pulse Rate 80 72 Respiratory Rate 18 18 Blood Pressure 172/89 H 166/94 H Pulse Oximetry 96 100 Oxygen Delivery Room Air Exam Narrative: GENERAL: Gaunt elderly male in NAD. HEENT: oral mucosa dry. NECK: No JVD, adenopathy, or thyromegaly. CHEST: Clear to auscultation. Normal effort. HEART: NL S1/S2, regular, 3/6 DENISE at RUSB to LLSB to carotids. ABDOMEN
[2023-06-15] MEDS: CARBIDOPA/LEVODOPA 25/100 MG TABLET 4 TABLET PO ×3 (09:51→17:29)
[2023-06-15] MEDS: CHOLECALCIFEROL 1,000 UNITS TABLET 1000 UNITS PO (09:51)
[2023-06-15] MEDS: MIDODRINE HCL 10 MG TABLET PO ×3 (09:51→17:29)
[2023-06-15] MEDS: SERTRALINE HCL 50 MG TABLET PO (09:51)
[2023-06-15 10:24] LABS: Hematocrit 33.1 % (42.0-52.0); Hemoglobin 11.3 g/dL (14.0-18.0); Mean Corpuscular HGB Conc 34.1 g/dl (32-36); Mean Corpuscular Hemoglobin 30.6 pg (26-34); Mean Corpuscular Volume 89.7 fl (80-100); Mean Platelet Volume 9.1 fl (7.4-10.4); Platelet Count Result 172 k/mm3 (150-375); Red Blood Count 3.69 M/mm3 (4.6-6.20); Red Cell Distribution Width 13.3 % (11.5-14.5); White Blood Count 16.9 K/mm3 (4.5-10.0)
[2023-06-15 10:36] LABS: Iron 18 ug/dL (49-181)
[2023-06-15 10:39] LABS: Alanine Aminotransferase 7 U/L (6-50); Albumin Level 3.2 g/dL (3.5-5.1); Alkaline Phosphatase 82 U/L (38-126); Anion Gap 5 mmol/L (8-16); Aspartate Amino Transferase 30 U/L (17-59); Bilirubin,Total 2.1 mg/dL (0.2-1.3); Blood Urea Nitrogen 27 mg/dL (9-20); Carbon Dioxide 25 mmol/L (22-30); Chloride 108 mmol/L (98-107); Estimated CRCL calculation 43 ml/min; Estimated Glomerular Filt Rate 42; Glucose 104 mg/dL (65-110); Potassium 3.8 mmol/L (3.4-5.0); Sodium 138 mmol/L (137-145)
[2023-06-15 10:46] LABS: Percent Iron Saturation 9 % (20-50)
[2023-06-15 11:15] LABS: Appearance Urine Cloudy (Clear); Bacteria Urine None Seen /hpf; Bilirubin Urine Negative (Negative); Blood Urine 3+ (Negative); Color Urine Dark Yellow (Yellow); Glucose Urine UA Negative (Negative); Ketones Urine 1+ mg/dL (Negative); Leukocyte Esterase Ur 1+ LEU/UL (Negative); Nitrate Urine Negative (Negative); Non Pathogenic Casts 0-2; Protein Urine 2+ mg/dL (Negative); RBC Urine >100 /hpf (0-2); Specific Grav Ur 1.019 (1.001-1.035); Squamous Epithelial Cell Urine None seen /hpf (Few)
[2023-06-15 11:20] LABS: Add Urine Microscopic? YES
[2023-06-15 11:44] LABS: Folic Acid 7.2 ng/mL (2.76->20)
--- NOTE | 2023-06-15 13:29 | PCOTNOTE ---
Attempted OT evaluation. Pt. unable to follow any commands including opening his eyes. Spoke with MD and he agrees with discharge from OT at this time.
[2023-06-15 14:00] VITALS: BP 119/66; PULSE 67; RESP 12; TEMP 36.6; O2SAT 99
[2023-06-15 19:45] VITALS: BP 154/69; PULSE 56; RESP 16; TEMP 36.4; O2SAT 100
[2023-06-15] MEDS: CARBIDOPA/LEVODOPA 25/100 MG CR TABLET 2 TABLET PO (20:55)
[2023-06-15] MEDS: QUEtiapine FUMARATE 25 MG TABLET 75 MG PO (20:56)
[2023-06-16 03:40] VITALS: BP 137/64; PULSE 61; RESP 16; TEMP 37; O2SAT 100
[2023-06-16 05:17] LABS: Hematocrit 31.9 % (42.0-52.0); Hemoglobin 10.4 g/dL (14.0-18.0); Mean Corpuscular HGB Conc 32.6 g/dl (32-36); Mean Corpuscular Hemoglobin 30.1 pg (26-34); Mean Corpuscular Volume 92.2 fl (80-100); Mean Platelet Volume 9.7 fl (7.4-10.4); Platelet Count Result 150 k/mm3 (150-375); Red Blood Count 3.46 M/mm3 (4.6-6.20); Red Cell Distribution Width 13.5 % (11.5-14.5); White Blood Count 9.5 K/mm3 (4.5-10.0)
[2023-06-16 05:27] LABS: Anion Gap 3 mmol/L (8-16); Blood Urea Nitrogen 24 mg/dL (9-20); Carbon Dioxide 27 mmol/L (22-30); Chloride 110 mmol/L (98-107); Estimated CRCL calculation 62 ml/min; Estimated Glomerular Filt Rate > 60; Glucose 84 mg/dL (65-110); Potassium 3.6 mmol/L (3.4-5.0); Sodium 140 mmol/L (137-145)
[2023-06-16] MEDS: SODIUM CHLORIDE 0.9% IV 1,000 ML 100 ML IV CONT (06:15)
--- NOTE | 2023-06-16 08:08 | PM.DS ---
DS: Admitting Diagnosis Discharge Date June 16, 2023 Admitting Diagnosis Gross hematuria due to catheter trauma DS: Discharge Diagnosis Discharge Diagnosis (1) Hematuria: Qualifiers: Hematuria type: gross Qualified Code(s): R31.0 - Gross hematuria Code(s): R31.9 - Hematuria, unspecified Status: Acute Assessment and Plan: Etiology unclear but BPH is likely Trujillo trauma is a likely contributor Given that he is a nonsmoker it is unlikely that he has a bladder neoplasm Check U/A reflex to evaluate for UTI Continue with current catheter until Urology follow-up as outpatient Ate well and at baseline mental status and functional status (2) Aortic stenosis: Qualifiers: Cardiac valve disease etiology: etiology unspecified Qualified Code(s): I35.0 - Nonrheumatic aortic (valve) stenosis Code(s): I35.0 - Nonrheumatic aortic (valve) stenosis Status: Acute Assessment and Plan: Moderate by echocardiogram and not likely contributing to his symptoms Regardless, he is a very poor candidate for any intervention (3) Hypotension: Qualifiers: Hypotension type: orthostatic hypotension Qualified Code(s): I95.1 - Orthostatic hypotension Code(s): I95.9 - Hypotension, unspecified Status: Acute Assessment and Plan: Likely related to his parkinsonism with autonomic dysfunction with possible contribution from poor oral intake and relative volume depletion Continue midodrine (4) Parkinsons disease: Qualifiers: Dyskinesia presence: unspecified whether dyskinesia Fluctuating manifestations: unspecified whether manifestations fluctuate Qualified Code(s): G20.A1 - Parkinson's disease without dyskinesia, without mention of fluctuations Code(s): G20 - Parkinson's disease Status: Chronic Assessment and Plan: Given his gait disturbance, dysarthria, malnutrition, dementia, his likely approaching end-stage Continue home regimen (5) Anemia: Qualifiers: Anemia type: unspecified type Qualified Code(s): D64.9 - Anemia, unspecified Code(s): D64.9 - Anemia, unspecified Status: Acute Assessment and Plan: H/H stable over the past 1.5 years Labs c/w anemia of chronic disease (6) Protein calorie malnutrition: Qualifiers: Protein-calorie malnutrition severity: unspecified severity Qualified Code(s): E46 - Unspecified protein-calorie malnutrition Code(s): E46 - Unspecified protein-calorie malnutrition Status: Acute Assessment and Plan: Mild by labs but clinically more severe DS: Summary Hospital Course Reason for hospitalization: Gross hematuria due to to catheter trauma Hospital Course: 77-year-old gentleman was transferred from [facility] after he was taken there by his because he was not moving as well as he had previously. Evaluation for infection included a catheterized urine specimen. Unfortunately with insertion of the catheter he had bleeding and the catheter did not irrigate. He was transferred [facility] where Urology placed a coude catheter. Was irrigated and small clots obtained. He was given IV saline overnight at 100 mL/hour. His creatinine improved from 1.6-1.1 overnight. Hemoglobin went from 11.3-10.4 with hydration. UA was consistent with bleeding has no bacteria were seen. Culture was pending at discharge. B12 folic acid were unremarkable. Iron studies were consistent with anemia of chronic disease. According to his he was at baseline mental status. He was tolerating his diet. She was not interested in home health for physical therapy. She did observed physical therapy here and will work on stretching exercises at bedside at home to maintain optimal flexibility. We did discuss that the next issue with his parkinsonism will likely be dysphagia and at that point he would be a candidate for hospice services. She und
[2023-06-16] MEDS: SERTRALINE HCL 50 MG TABLET PO (08:34)
[2023-06-16] MEDS: CHOLECALCIFEROL 1,000 UNITS TABLET 1000 UNITS PO (08:34)
[2023-06-16] MEDS: MIDODRINE HCL 10 MG TABLET PO ×2 (08:34→12:12)
[2023-06-16] MEDS: CARBIDOPA/LEVODOPA 25/100 MG TABLET 4 TABLET PO ×2 (08:34→12:11)
== END 2023-06-16 12:35 | disposition home health service (06) ==
PROVIDERS: Admitting Provider Internal Medicine; PCP Family Medicine; Visit Provider Internal Medicine
DX: R31.0 Gross hematuria (principal); R32 Unspecified urinary incontinence; I35.0 Nonrheumatic aortic (valve) stenosis; I95.1 Orthostatic hypotension; G20.A1 Parkinson's disease without dyskinesia, without mention of fluctuations; F02.80 Dementia in other diseases classified elsewhere, unspecified severity, without behavioral disturbance, psychotic disturbance, mood disturbance, and anxiety; R29.6 Repeated falls; D64.9 Anemia, unspecified; E46 Unspecified protein-calorie malnutrition; Z68.39 Body mass index [BMI] 39.0-39.9, adult; Z91.81 History of falling; F32.A Depression, unspecified; G47.00 Insomnia, unspecified; Z79.899 Other long term (current) drug therapy
CPT/HCPCS: 51702; 36415; 80048; 80053; 81001; 82607; 82746; 83540; 83550; 84443; 85027; 87086; 96360; 96361; 97163; 97530; A9270; G0378; G0379; J7030

== ENCOUNTER 2023-06-20 15:19 | Outpatient (NON) | payer MEDICARE, SELFPAY | END 2023-06-20 15:20 | disposition home or self-care (01) | LOC: CHSLAB 15:20 | PROVIDERS: Visit Provider Family Medicine | DX: R35.0 Frequency of micturition (principal) | CPT/HCPCS: 87077; 87086; 87088 ==

== ENCOUNTER 2023-08-22 13:57 | Observation (INO) | payer MEDICARE, SELFPAY ==
[2023-08-22 14:10] VITALS: BP 111/69; RESP 10; TEMP 36.4
--- NOTE | 2023-08-22 14:13 | ED.WOUNDLAC ---
HPI - Wound/Laceration General Chief Complaint: Wound/Laceration Stated Complaint: severe bed sores; hospice admit Time Seen by Provider: 08/22/23 14:03 Source: patient and family Mode of arrival: wheelchair Limitations: no limitations History of Present Illness HPI narrative: this is a 77-year-old male that has a history of Parkinson's disease severely emaciated and has been declining over the past several months. Presents to his primary care physician's office and family was spoken to about hospice care and they declined at his primaries office but are willing to be admitted to the hospital for hospice care. Patient is severely emaciated and has aberrant bed sores on bilateral hips, otherwise does not appear to be in any pain or discomfort unless he has moved and are manipulated. Otherwise there is no chest pain no shortness of breath no fever chills. states that he eats very little he is very thin and is prone to bed sores but is not interested in any intervention he is currently a DNR with no intubation no CPR and family wants him admitted and having hospice consult id. Onset (ago): month(s) Place: home Related Data Home Medications Medication Instructions Recorded Confirmed carbidopa 25 mg-levodopa 100 mg 4 tablet PO TID 06/17/19 08/22/23 tablet carbidopa ER 50 mg-levodopa 200 mg 2 tablet PO .Bedtime 06/17/19 08/22/23 tablet,extended release cholecalciferol (vitamin D3) 25 1,000 unit PO DAILY 06/17/19 08/22/23 mcg (1,000 unit) tablet quetiapine 25 mg tablet 75 mg PO HS 06/17/19 08/22/23 vitamin E 1,000 unit tablet 1 tablet PO DAILY 09/30/21 08/22/23 Allergies Allergy/AdvReac Type Severity Reaction Status Date / Time No Known Allergies Allergy Verified 08/22/23 14:03 Review of Systems Review of Systems: All systems reviewed & are unremarkable except as noted in HPI and below PMFSH Past Medical History Medical History Contusion of left orbital tissues Cyst of Skin Depression Insomnia Parkinsons disease Dx'd 2010 Skin lesion of neck Surgical History Surgical History No history of previous surgery Family History Family History Mother Hypertension Other Parkinson disease Social History Social History Smoking status: Never smoker Alcohol intake: never Alcohol use details: Seldom Substance use: never Substance use type: does not use Do You Feel Safe in your Home?: Yes Lack of Transportation: No Lack of Food: Never True Current Housing: I Have Housing Concerned About Future Housing: No Difficulty Paying Gas/Electric Bills: No Difficulty Paying for Meds: No Currently Unemployed: No Education: Trade/Vocational Certificate Difficulty w/ Childcare or Family Care: No Living arrangements: with family Additional living arrangements comments: . 3 Children. 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 Gender identity (if verbalized by the patient): Male Spiritual care concerns: No Exam Const: General: no acute distress and ill appearing Nutritional Appearance: thin Orientation/consciousness: confusion Limitations: behavioral limitations and physical limitations HENMT: Other: Severely emaciated Eyes: Conjunctivae: conjunctivae normal Neck: Neck: normal visual inspection, no lymphadenopathy and no meningeal signs Chest: Chest palpation & inspection: normal inspection of the chest Resp: Effort & Inspection: normal respiratory effort Auscultation: clear to auscultation bilaterally Cardio: Rate: regular rate Rhythm: regular rhythm GI: GI Palp: Yes Soft to palpation Auscultation: normal bowel sounds Skin: Wounds: wounds noted Other: bilat
[2023-08-22] MEDS: SODIUM CHLORIDE 0.9% IV 1,000 ML 999 ML IV CONT (14:24)
[2023-08-22 14:51] LABS: Hematocrit 36.1 % (37.0-46.0); Hemoglobin 10.5 g/dL (12.4-15.3); Mean Corpuscular HGB Conc 29.1 g/dL (32-36); Mean Corpuscular Hemoglobin 29.2 pg (27.0-31.0); Mean Corpuscular Volume 100.6 fL (78.0-102.0); Platelet Count Result 165 K/mm3 (150-420); Red Blood Count 3.59 M/mm3 (4.70-6.10); Red Cell Distribution Width 13.7 % (11.6-14.4); White Blood Count 12.7 K/mm3 (4.8-10.8)
[2023-08-22 15:09] LABS: Alanine Aminotransferase 6 U/L (16-63); Albumin Level 2.4 g/dL (3.4-5.0); Alkaline Phosphatase 75 U/L (46-116); Anion Gap 18 mmol/L (4-12); Aspartate Amino Transferase 32 U/L (15-37); Bilirubin,Total 1.1 mg/dL (0.00-1.00); Blood Urea Nitrogen 103 mg/dL (7-18); Calcium 8.7 mg/dL (8.5-10.1); Carbon Dioxide 19 mmol/L (21-32); Chloride 105 mmol/L (98-108); Estimated CRCL calculation 7 ml/min; Estimated Glomerular Filt Rate 16; Glucose 131 mg/dL (70-99); Osmolality Calculated 328 mOsm/kg (285-295); Potassium 5.7 mmol/L (3.5-5.1); Sodium 142 mmol/L (136-145); Total Protein 6.8 g/dL (6.4-8.2)
[2023-08-22] MEDS: PIPERACILLN/TAZ 3.375GM/NS50ML 3.375 GM/50 ML BAG IVPB (15:38)
[2023-08-22 15:49] LABS: Band Neutrophils Percent 8 % (0-6); Lymphocytes Absolute Manual 0.25 K/mm3 (1.1-4.5); Lymphocytes Percent Manual 2 % (18-44); Monocytes Absolute Manual 0.25 K/mm3 (0.1-0.90); Monocytes Percent Manual 2 % (3-9); Neutrophils Absolute Manual 12.19 K/mm3 (1.3-6.7); Neutrophils Percent Manual 88 % (46-73); Total Cells Counted 100
[2023-08-22 15:50] LABS: Platelet Estimate Adequate (Adequate)
[2023-08-22 16:12] VITALS: BP 101/59; PULSE 85; RESP 14; TEMP 36.2
[2023-08-22 16:19] VITALS: BP 112/70; PULSE 66; RESP 14; TEMP 36.1; O2SAT 98
[2023-08-22 17:00] VITALS: BMI 14.6
--- NOTE | 2023-08-22 18:39 | ADMGEN ---
This patient, Toney Rock, was admitted to 2nd Floor Room 206-1. Patient/family oriented to hospital policies and general routines including ID bracelet, bed and alarms, visiting hours, pain management, procedures, bathroom and other care routines, personal items, smoking policy, room service/diet, and visiting hours. Information on how to activate the Rapid Response Team has been discussed. Patient/Family are encouraged to report perceived risks to care and to ask questions if they do not understand what they are told or what they should do.
--- NOTE | 2023-08-22 19:33 | PM.EVENT ---
Event Note Event Note Event Note: Spoke with Shakira who is the patient's about grim prognosis. I explained to her that he is currently in kidney failure and that there is liver involvement considering his bilirubin is elevated. Patient has extensive pressure wounds with black eschar over most of the wound beds to both hips and buttocks, likely going down to the bone. I discussed the extent of his wounds in detail and that these wounds will not heal in his present condition. The extent of his wounds are not survivable even if we actively treat. Patient is severely emancipated and malnourished likely due to his chronic illness. I discussed these findings with the and talked to her more about hospice and comfort measures. The is agreeable to hospice and full comfort. I told her that she should head to the hospital to be with him as he may not make it through the night. Bedside nursing called and aware that Shakira will be coming back to be there with Toney and that we are on strict comfort measures. If he does survive the night we will discuss getting hospice involved tomorrow.
[2023-08-23] VITALS: BP 99/68; PULSE 20; RESP 20; TEMP 36.2; O2SAT 100
[2023-08-23 08:00] VITALS: BP 85/57; PULSE 63; RESP 15; TEMP 36.6; O2SAT 99
[2023-08-23 08:05] LABS: Hematocrit 31.4 % (37.0-46.0); Hemoglobin 10.1 g/dL (12.4-15.3); Mean Corpuscular HGB Conc 32.2 g/dL (32-36); Mean Corpuscular Hemoglobin 29.4 pg (27.0-31.0); Mean Corpuscular Volume 91.3 fL (78.0-102.0); Mean Platelet Volume 9.7 fl (8.7-11.0); Platelet Count Result 157 K/mm3 (150-420); Red Blood Count 3.44 M/mm3 (4.70-6.10); Red Cell Distribution Width 13.9 % (11.6-14.4); White Blood Count 9.8 K/mm3 (4.8-10.8)
[2023-08-23 08:23] LABS: Alanine Aminotransferase 8 U/L (16-63); Albumin Level 2.2 g/dL (3.4-5.0); Alkaline Phosphatase 69 U/L (46-116); Anion Gap 16 mmol/L (4-12); Aspartate Amino Transferase 41 U/L (15-37); Blood Urea Nitrogen 116 mg/dL (7-18); Calcium 8.3 mg/dL (8.5-10.1); Carbon Dioxide 22 mmol/L (21-32); Chloride 110 mmol/L (98-108); Creatine Kinase 472 U/L (39-308); Estimated CRCL calculation 10 ml/min; Estimated Glomerular Filt Rate 16; Glucose 95 mg/dL (70-99); Magnesium 2.5 mg/dL (1.8-2.4); Osmolality Calculated 342 mOsm/kg (285-295); Potassium 4.9 mmol/L (3.5-5.1); Sodium 148 mmol/L (136-145); Total Protein 6.4 g/dL (6.4-8.2)
[2023-08-23 08:26] LABS: Lactic Acid Reflex 1.4 mmol/L (0.4-2.0)
[2023-08-23 08:28] LABS: Band Neutrophils Percent 6 % (0-6); Basophils Percent Manual 0 % (0-1); Eosinophils Absolute Manual 0.09 K/mm3 (0.02-0.50); Eosinophils Percent Manual 1 % (1-6); Lymphocytes Absolute Manual 0.29 K/mm3 (1.1-4.5); Lymphocytes Percent Manual 3 % (18-44); Monocytes Absolute Manual 0.09 K/mm3 (0.1-0.90); Monocytes Percent Manual 1 % (3-9); Neutrophils Absolute Manual 9.31 K/mm3 (1.3-6.7); Neutrophils Percent Manual 89 % (46-73); Platelet Estimate Adequate (Adequate); Total Cells Counted 100
--- NOTE | 2023-08-23 13:46 | PM.IMHP ---
H&P: HPI History of Present Illness Date/Time: 08/23/23 13:46 Chief Complaint: unstageable pressure injury decubitus ulcers end-stage Parkinson's disease severe malnutrition failure to thrive depression Narrative: This is a 77-year-old male with a significant past medical history of depression, insomnia, end-stage Parkinson's disease who presented with decubitus ulcers in various stages. Patient is severely emaciated and has progressively gotten worse over the last few months. states that he was still eating and drinking over the weekend. He originally presented to his primary care physician Dr. Stearns's office where his wounds were evaluated and they talked hospice at that time however the family was declining Hospice care at the primary office. states that he has not been eating and has lost a bit of weight which made him more prone to these bedsores. stated that just a few weeks ago she was able to get him up into a wheelchair however he did not really have much movement while in the wheelchair. Workup in the hospital included initial labs showing a white blood count of 12.7, hemoglobin 10.5, potassium 5.7, bicarb 19, BUN 103, creatinine 3.72, EGFR 16, total bili 1.1, liver enzymes were normal at that time. Blood cultures were also obtained and are showing Gram-negative bacilli in 1 out of the 2 vials on preliminary read. He was given a dose of Zosyn and 1 L IV fluid while in the ED and hospice was again approached. I spoke with the over the phone yesterday and discussed his Gram prognosis. I explained to her that he is currently in kidney failure and that his bilirubin was elevated. I does cuss the extent of his pressure wounds and that it is unlikely that they will heal as he is severely emaciated and malnourished. I spoke to the about hospice and comfort measures in the is agreeable to hospice in full comfort. Case management consulted for hospice arrangements. We will continue comfort measures at this time while in the hospital. Review of Systems Review of Systems: ROS unobtainable: Yes unobtainable due to medical condition PMFSH Past Medical History Medical History Contusion of left orbital tissues Cyst of Skin Depression Insomnia Parkinsons disease Dx'd 2010 Skin lesion of neck Surgical History Surgical History No history of previous surgery Family History Family History Mother Hypertension Other Parkinson disease Social History Social History Smoking status: Never smoker Alcohol intake: never Alcohol use details: Seldom Substance use: never Substance use type: does not use Do You Feel Safe in your Home?: Yes Lack of Transportation: No Lack of Food: Never True Current Housing: I Have Housing Concerned About Future Housing: No Difficulty Paying Gas/Electric Bills: No Difficulty Paying for Meds: No Currently Unemployed: No Education: Trade/Vocational Certificate Difficulty w/ Childcare or Family Care: No Living arrangements: with family Additional living arrangements comments: . 3 Children. 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
--- NOTE | 2023-08-23 16:26 | PM.DS ---
DS: Admitting Diagnosis Discharge Date 08/23/23 Admitting Diagnosis bacteremia acute kidney injury decubitus ulcer severe protein calorie malnutrition anemia hypotension end-stage Parkinson's disease hyperbilirubinemia DS: Summary Hospital Course Reason for hospitalization: bacteremia acute kidney injury decubitus ulcer severe protein calorie malnutrition anemia hypotension end-stage Parkinson's disease hyperbilirubinemia Hospital Course: This is a 77-year-old male with a significant past medical history of depression, insomnia, end-stage Parkinson's disease? who presented with decubitus ulcers in various stages.? Patient is severely? emaciated and has progressively gotten worse over the last few months.? states that he was still eating and drinking over the weekend. He originally presented to his primary care physician Dr. Stearns's office where? his wounds were evaluated and? they talked hospice at that time however the family was declining? Hospice care at the primary office.? states that he has not been eating and has lost a bit of weight which made him more prone to these bedsores.? stated that just a few weeks ago she was able to get him up into a wheelchair however he did not really have much movement while in the wheelchair.? Workup in the hospital included initial labs showing a white blood count of 12.7, hemoglobin 10.5, potassium 5.7, bicarb 19, BUN 103, creatinine 3.72, EGFR 16, total bili 1.1, liver enzymes were normal at that time.? Blood cultures were also obtained and are showing Gram-negative bacilli in 1 out of the 2 vials on preliminary read.? He was given a dose of Zosyn and 1 L IV fluid while in the ED and hospice was again approached. I spoke with the over the phone yesterday and discussed his Gram prognosis.? I explained to her that he is currently in kidney failure and that his bilirubin was elevated.? I does cuss the extent of his pressure wounds and that it is unlikely that they will heal as he is severely emaciated and malnourished.? I spoke to the about hospice and comfort measures in the is agreeable to hospice in full comfort.? Case management consulted for hospice arrangements. patient will be going over to [facility] for hospice care with residential hospice. He is okay for discharge time. final diagnosis: severe protein calorie mild nutrition, failure to thrive, acute renal failure, bacteremia, end-stage Parkinson's disease, physical deconditioned Time Spent with Patient Time attestation: Total time spent providing and/or coordinating discharge services: Exam Narrative: General:? chronically ill, severely malnourished,? emaciated Head: atraumatic, no encephalopathy Eyes: EOMI, PERRLA, sclera clear ENT:dry mucous membranes, nasal passages clear Neck: supple, no JVD, no adenopathy, trachea midline Cardiac: Normal S1 and S2. RRR No murmur, gallops or friction rubs, peripheral pulses intact. Respiratory: Lungs diminished,? no adventitious lung sounds, currently on room air Gastrointestinal: soft, non-distended, non-tender, hypoactive bowel sounds. :? Trujillo catheter in place draining dark norbert urine Extremities: minimal movement BUE, BLE, emaciated Skin: extensive unstageable decubitus ulcers bilateral hips, stage 2-3 on coccyx, foul odor Neuro: Unable to assess, unresponsive Psych: Unable to assess, unresponsive DS: Data Data Completed and Pending Completed studies during hospitalization: none Pending studies at discharge: blood cultures Labs on day of discharge: Labs from last 24 hours 08/23/23 08:01 WBC 9.8 RBC 3.44 L Hgb 10.1 L Hct 31.4 L MCV 91.3 MCH 29.4 MCHC 32.2 RDW 13.9 Plt Count 157 MPV 9.7 Immature Gran % (Auto) Not Reportable Neut % (Auto) Not Reportable Lymph % (Auto) Not Reportable [place] % (Auto) Not Reportable Eos % (Auto) Not Reportable Baso % (Auto) Not Reportable Lymph # (Auto) Not Reportable [place] # (Aut
--- NOTE | 2023-08-23 16:30 | PC.NURSE ---
Pt discharging to [facility] in [place]. No wound photos taken (end of life care). Report called to Alicia. All questions answered.
--- NOTE | 2023-08-27 07:58 | PC.NURSE ---
Patient discharged to [facility] for hospice care via residential home health/hospice service, no questions regarding dc from staff
== END 2023-08-23 17:35 | disposition hospice, inpatient (51) ==
LOC: CHSED 15:27 → CHS2ND 15:48
PROVIDERS: Nurse Practitioner Acute Care; Admitting Provider Internal Medicine; Emergency Provider Emergency Medicine; PCP Family Medicine; Visit Provider Internal Medicine
DX: N17.9 Acute kidney failure, unspecified (principal); E43 Unspecified severe protein-calorie malnutrition; L89.222 Pressure ulcer of left hip, stage 2; L89.212 Pressure ulcer of right hip, stage 2; L89.322 Pressure ulcer of left buttock, stage 2; L89.312 Pressure ulcer of right buttock, stage 2; R78.81 Bacteremia; R62.7 Adult failure to thrive; Z68.1 Body mass index [BMI] 19.9 or less, adult; D64.9 Anemia, unspecified; I95.9 Hypotension, unspecified; G20.A1 Parkinson's disease without dyskinesia, without mention of fluctuations; E80.6 Other disorders of bilirubin metabolism; G47.00 Insomnia, unspecified; F32.A Depression, unspecified; Z96.0 Presence of urogenital implants; Z66 Do not resuscitate; Z79.899 Other long term (current) drug therapy
CPT/HCPCS: 36415; 80053; 82550; 83605; 83735; 85025; 87040; 87147; 87186; 96361; 96365; 96366; 99285; G0378; J2543; J7030